=== PATIENT | male | born 1930 | race Caucasian/White ===

== ENCOUNTER 2016-10-29 20:14 | Inpatient (IN) | payer MEDICARE ==
[2016-10-29] MEDS ORDERED: DILTIAZEM 5 MG/ML 5 ML VIAL IVP STA ×2 (20:25→21:58)
--- NOTE | 2016-10-29 20:28 | ED ---
General Adult HPI - General Chief complaint: Shortness of Breath Stated complaint: NEYDA Time Seen by Provider: 10/29/16 20:17 Source: EMS, RN notes reviewed, old records reviewed Mode of arrival: EMS Limitations: no limitations - History of Present Illness Initial comments: This is a 85-year-old male the ER for reevaluation severe shortness of breath or patient was just discharged from [facility] to x-ray care facility. At that time patient became severely hypotensive severely tachycardic and EMS was called. Patient was be again also hypoxic. Patient self denies chest pain with does admit to significant stress of breath. EMS history is obtained from, did note patient to be in SVT and gave adenosine. No help - Related Data Home Medications Medication Instructions Recorded Confirmed Aspirin [Adult Low Dose Aspirin EC] 81 mg PO DAILY 10/29/16 10/29/16 Atorvastatin Calcium [Lipitor] 80 mg PO DAILY 10/29/16 10/29/16 Budesonide/Formoterol Fumarate 2 puff INHALATION RT-BID 10/29/16 10/29/16 [Symbicort 160-4.5 Mcg Inhaler] Cefuroxime Axetil [Ceftin] 500 mg PO BID 10/29/16 10/29/16 Famotidine [Pepcid] 20 mg PO BID 10/29/16 10/29/16 Ipratropium-Albuterol Nebulize 3 ml INHALATION RT-QID 10/29/16 10/29/16 [Duoneb 0.5 mg-3 mg/3 ml Soln] Lisinopril [Zestril] 20 mg PO DAILY 10/29/16 10/29/16 Metoprolol Tartrate [Lopressor] 25 mg PO BID 10/29/16 10/29/16 Multivitamins, Thera [Multivitamin 1 tab PO DAILY 10/29/16 10/29/16 (formulary)] Nitroglycerin Sl Tabs [Nitrostat] 0.4 mg SUBLINGUAL Q5M PRN 10/29/16 10/29/16 predniSONE See Taper PO DAILY 10/29/16 10/29/16 Allergies Allergy/AdvReac Type Severity Reaction Status Date / Time No Known Allergies Allergy Verified 10/29/16 21:02 Review of Systems ROS Statement: Those systems with pertinent positive or pertinent negative responses have been documented in the HPI. ROS Other: All systems not noted in ROS Statement are negative. Past Medical History Past Medical History: Hyperlipidemia, Hypertension Additional Past Medical History / Comment(s): COPD, [place] History of Any Multi-Drug Resistant Organisms: None Reported Past Psychological History: No Psychological Hx Reported Past Alcohol Use History: None Reported Past Drug Use History: None Reported General Exam Limitations: no limitations General appearance: anxious, in distress Head exam: Present: atraumatic, normocephalic, normal inspection Eye exam: Present: normal appearance, PERRL, EOMI. Absent: scleral icterus, conjunctival injection, periorbital swelling ENT exam: Present: normal exam, mucous membranes moist Neck exam: Present: normal inspection. Absent: tenderness, meningismus, lymphadenopathy Respiratory exam: Present: normal lung sounds bilaterally. Absent: respiratory distress, wheezes, rales, rhonchi, stridor Cardiovascular Exam: Present: regular rate, normal rhythm, normal heart sounds. Absent: systolic murmur, diastolic murmur, rubs, gallop, clicks GI/Abdominal exam: Present: soft, normal bowel sounds. Absent: distended, tenderness, guarding, rebound, rigid Extremities exam: Present: normal inspection, full ROM, normal capillary refill. Absent: tenderness, pedal edema, joint swelling, calf tenderness Back exam: Present: normal inspection Neurological exam: Present: alert, oriented X3, CN II-XII intact Psychiatric exam: Present: normal affect, normal mood Skin exam: Present: warm, dry, intact, normal color. Absent: rash Course Vital Signs 10/29/16 10/29/16 10/29/16 20:15 20:30 21:33 Temperature 96.7 F L Pulse Rate 164 H Pulse Rate [ 164 H Transformation Analyst ] Respiratory 22 28 H Rate Blood Pressure 155/77 130/58 O2 Sat by Pulse 100 94 L Oximetry - Reevaluation(s) Reevaluation #1: 10/29/16 21:44 patient hsa much improvement with heart rate control and btreathing treatments EKG Findings - EKG Comments: EKG Findings:: EKG shows wide complex tachycardia rate 164, QRS 120, QTC 5:15. EKG shows a flutter rate 96, QRS 116, QTC 449 Medical Decision Making - Medical Decision Making A serum L year for evaluation of shortness of breath cough congestion chest pain. Patient found to be in new-onset A. fib with RVR, will admit for cardiac evaluation rate control, patient also had elevated troponin. We'll admit for cardiology evaluation - Lab Data Result diagrams: 10/29/16 20:32 10/29/16 20:32 Lab Results 10/29/16 10/29/16 10/29/16 Range/Units 20:32 20:32 20:32 WBC 17.5 H (3.8-10.6) k/uL RBC 3.25 L (4.30-5.90) m/uL Hgb 10.9 L (13.0-17.5) gm/dL Hct 33.7 L (39.0-53.0) % MCV 103.6 H (80.0-100.0) fL MCH 33.5 (25.0-35.0) pg MCHC 32.4 (31.0-37.0) g/dL RDW 14.5 (11.5-15.5) % Plt Count 290 (150-450) k/uL Neutrophils % 84 % Lymphocytes % 6 % Monocytes % 7 % Eosinophils % 0 % Basophils % 0 % Neutrophils # 14.7 H (1.3-7.7) k/uL Lymphocytes # 1.1 (1.0-4.8) k/uL Monocytes # 1.2 H (0-1.0) k/uL Eosinophils # 0.1 (0-0.7) k/uL Basophils # 0.1 (0-0.2) k/uL Macrocytosis Slight PT (9.0-12.0) sec INR (<1.1) APTT (22.0-30.0) sec Sodium 130 L (137-145) mmol/L Potassium 5.1 (3.5-5.1) mmol/L Chloride 78 L* (98-107) mmol/L Carbon Dioxide 46 H* (22-30) mmol/L Anion Gap 6 mmol/L BUN 61 H (9-20) mg/dL Creatinine 1.00 (0.66-1.25) mg/dL Est GFR (MDRD) Af Amer >60 (>60 ml/min/1.73 sqM) Est GFR (MDRD) Non-Af >60 (>60 ml/min/1.73 sqM) Glucose 209 H (74-99) mg/dL Calcium 8.6 (8.4-10.2) mg/dL Phosphorus 2.9 (2.5-4.5) mg/dL Magnesium 2.6 H (1.6-2.3) mg/dL Total Bilirubin 0.7 (0.2-1.3) mg/dL AST 36 (17-59) U/L ALT 40 (21-72) U/L Alkaline Phosphatase 40 (38-126) U/L Total Creatine Kinase 115 (55-170) U/L CK-MB (CK-2) 3.4 H* (0.0-2.4) ng/mL CK-MB (CK-2) Rel Index 3.0 Troponin I 0.129 H* (0.000-0.034) ng/mL Total Protein 5.8 L (6.3-8.2) g/dL Albumin 3.6 (3.5-5.0) g/dL 10/29/16 Range/Units 20:32 WBC (3.8-10.6) k/uL RBC (4.30-5.90) m/uL Hgb (13.0-17.5) gm/dL Hct (39.0-53.0) % MCV (80.0-100.0) fL MCH (25.0-35.0) pg MCHC (31.0-37.0) g/dL RDW (11.5-15.5) % Plt Count (150-450) k/uL Neutrophils % % Lymphocytes % % Monocytes % % Eosinophils % % Basophils % % Neutrophils # (1.3-7.7) k/uL Lymphocytes # (1.0-4.8) k/uL Monocytes # (0-1.0) k/uL Eosinophils # (0-0.7) k/uL Basophils # (0-0.2) k/uL Macrocytosis PT 10.2 (9.0-12.0) sec INR 1.0 (<1.1) APTT 20.6 L (22.0-30.0) sec Sodium (137-145) mmol/L Potassium (3.5-5.1) mmol/L Chloride (98-107) mmol/L Carbon Dioxide (22-30) mmol/L Anion Gap mmol/L BUN (9-20) mg/dL Creatinine (0.66-1.25) mg/dL Est GFR (MDRD) Af Amer (>60 ml/min/1.73 sqM) Est GFR (MDRD) Non-Af (>60 ml/min/1.73 sqM) Glucose (74-99) mg/dL Calcium (8.4-10.2) mg/dL Phosphorus (2.5-4.5) mg/dL Magnesium (1.6-2.3) mg/dL Total Bilirubin (0.2-1.3) mg/dL AST (17-59) U/L ALT (21-72) U/L Alkaline Phosphatase (38-126) U/L Total Creatine Kinase (55-170) U/L CK-MB (CK-2) (0.0-2.4) ng/mL CK-MB (CK-2) Rel Index Troponin I (0.000-0.034) ng/mL Total Protein (6.3-8.2) g/dL Albumin (3.5-5.0) g/dL - Radiology Data Radiology results: report reviewed, image reviewed Critical Care Time Critical Care Time: Yes Total Critical Care Time: 31 Disposition Clinical Impression: Acute exacerbation of chronic obstructive airways disease, Chest pain, NSTEMI ( non-ST elevated myocardial infarction), Atrial fibrillation with RVR Disposition: ADMITTED IP TO THIS HOSP Condition: Serious Referrals: Mariajose Messer MD [Primary Care Provider] - 1-2 days
[2016-10-29 20:56] LABS: Basophils # (A) 0.1 k/uL (0-0.2); Basophils % (A) 0 %; CH 34.2; CHCM 33.2; Eosinophils # (A) 0.1 k/uL (0-0.7); Eosinophils % (A) 0 %; HCT 33.7 % (39.0-53.0); HDW 2.87; HGB 10.9 gm/dL (13.0-17.5); Luc # (Auto) 0.42; Luc % (Auto) 2; Lymphocytes # (A) 1.1 k/uL (1.0-4.8); Lymphocytes % (A) 6 %; MCH 33.5 pg (25.0-35.0); MCHC 32.4 g/dL (31.0-37.0); MCV 103.6 fL (80.0-100.0); Macrocytosis Slight; Mean Platelet Volume 8.3; Monocytes # (A) 1.2 k/uL (0-1.0); Monocytes % (A) 7 %; Neutrophils # (A) 14.7 k/uL (1.3-7.7); Neutrophils % (A) 84 %; RBC 3.25 m/uL (4.30-5.90); RDW 14.5 % (11.5-15.5); WBC 17.5 k/uL (3.8-10.6); WBC (Perox) 18.33
[2016-10-29] MEDS ORDERED: LEVALBUTEROL NEB 1.25 MG/3 ML AMP INHALATION STA (20:59)
[2016-10-29] MEDS ORDERED: IPRATROPIUM 0.5 MG/2.5 ML NEBU INHALATION STA (20:59)
[2016-10-29 21:05] LABS: Prothrombin Time 10.2 sec (9.0-12.0)
[2016-10-29 21:15] LABS: ALT 40 U/L (21-72); AST 36 U/L (17-59); Alkaline Phosphatase 40 U/L (38-126); Blood Urea Nitrogen 61 mg/dL (9-20); Calcium 8.6 mg/dL (8.4-10.2); Glucose 209 mg/dL (74-99); Magnesium 2.6 mg/dL (1.6-2.3); Non-African American GFR(MDRD) >60 (>60 ml/min/1.73 sqM); Phosphorous 2.9 mg/dL (2.5-4.5); Potassium 5.1 mmol/L (3.5-5.1); Sodium 130 mmol/L (137-145); Total Bilirubin 0.7 mg/dL (0.2-1.3); Total Protein 5.8 g/dL (6.3-8.2)
[2016-10-29 21:20] LABS: Anion Gap 6 mmol/L
[2016-10-29 21:22] LABS: Carbon Dioxide 46 mmol/L (22-30); Chloride 78 mmol/L (98-107)
--- NOTE | 2016-10-29 21:22 | XR ---
EXAMINATION TYPE: XR chest 1V portable DATE OF EXAM: 10/29/2016 9:13 PM HISTORY: Shortness of breath. COMPARISON: None. TECHNIQUE: Single view of the chest is submitted. FINDINGS: Demonstrated are scattered senescent parenchymal change. There is patchy density right lung base which may reflect infiltrate and/or atelectasis. Mild left ba silar pleural thickening. The heart is stable. Hilar and mediastinal structures are within normal limits. Degenerative changes are seen of the dorsal spine. IMPRESSION: 1. There is patchy density right lung base which may reflect infiltrate and/or atelectasis. Mild lef t basilar pleural thickening.
[2016-10-29 21:27] LABS: Partial Thromboplastin Time 20.6 sec (22.0-30.0)
[2016-10-29 21:31] LABS: Troponin I 0.129 ng/mL (0.000-0.034)
[2016-10-29 21:32] LABS: Creatine Kinase MB 3.4 ng/mL (0.0-2.4)
[2016-10-29] MEDS ORDERED: ASPIRIN 81 MG CHEW PO STA (21:37)
[2016-10-29] MEDS ORDERED: HEPARIN SODIUM,PORCINE 5,000 UNIT/ML 1 ML VIAL IV PRN (21:37)
[2016-10-29] MEDS ORDERED: NITROGLYCERIN SL TABS 0.4 MG TAB SUBLINGUAL PRN (21:37)
[2016-10-29] MEDS ORDERED: HEPARIN SODIUM,PORCINE 5,000 UNIT/ML 1 ML VIAL IV ONE (21:37)
[2016-10-29] MEDS ORDERED: SODIUM CHLORIDE 0.9% 1,000 ML IV SCH (21:45)
[2016-10-29] MEDS ORDERED: DILTIAZEM 125 MG in SODIUM CHLORIDE 0.9% 100 ML IV SCH (22:00)
[2016-10-29] MEDS: HEPARIN SODIUM,PORCINE/D5W PMX 25,000 UNIT in DEXTROSE/WATER 1 500ML.BAG IV SCH (22:19)
[2016-10-29 23:22] VITALS: BMI 26.2
[2016-10-30 01:56] LABS: Appearance,Urine Clear (Clear); Bilirubin,Urine Negative (Negative); Glucose,Urine (UA) 4+ (Negative); Ketones,Urine Negative (Negative); Leukocyte Esterase,Urine Trace (Negative); Mucus,Urine Rare /hpf; Nitrite,Urine Negative (Negative); Particle Count 4464; Protein,Urine 1+ (Negative); RBC,Urine 6 /hpf (0-5); Specific Gravity,Urine 1.022 (1.001-1.035); Squamous Epithelial Cell,Urine 1 /hpf (0-4); UA Billing (MACRO vs. MICRO) MICRO; Urobilinogen,Urine <2.0 mg/dL (<2.0); WBC,Urine 4 /hpf (0-5)
[2016-10-30] MEDS: IPRATROPIUM-ALBUTEROL 3 ML NEB INHALATION SCH ×3 (03:12→10:48)
[2016-10-30 04:05] LABS: Mean Platelet Volume 8.5
[2016-10-30 04:58] LABS: Cholesterol 170 mg/dL (<200); HDL Cholesterol 75 mg/dL (40-60); Triglycerides 135 mg/dL (<150)
[2016-10-30 05:00] LABS: Troponin I 0.153 ng/mL (0.000-0.034)
[2016-10-30] MEDS ORDERED: ASPIRIN 325 MG TAB PO SCH (09:00)
[2016-10-30] MEDS ORDERED: METOPROLOL TARTRATE 25 MG TAB PO SCH ×2 (09:00→09:45)
[2016-10-30] MEDS ORDERED: HYDROCHLOROTHIAZIDE 12.5 MG CAP PO SCH (09:00)
[2016-10-30] MEDS ORDERED: NITROGLYCERIN SL TABS 0.4 MG TAB SUBLINGUAL PRN (09:36)
[2016-10-30] MEDS ORDERED: IPRATROPIUM 0.5 MG/2.5 ML NEBU INHALATION PRN (09:39)
[2016-10-30] MEDS ORDERED: methylPREDNISolone SOD SUCCI 125 MG/2 ML VIAL IV STA (09:40)
[2016-10-30] MEDS ORDERED: LISINOPRIL 20 MG TAB PO SCH (09:45)
[2016-10-30 09:59] LABS: CH 33.6; HCT 30.3 % (39.0-53.0); HDW 2.88; HGB 9.9 gm/dL (13.0-17.5); MCH 33.5 pg (25.0-35.0); MCHC 32.8 g/dL (31.0-37.0); MCV 102.3 fL (80.0-100.0); Macrocytosis Slight; Mean Platelet Volume 8.1; RBC 2.96 m/uL (4.30-5.90); RDW 14.4 % (11.5-15.5); WBC 18.7 k/uL (3.8-10.6)
[2016-10-30 10:07] LABS: ALT 40 U/L (21-72); AST 41 U/L (17-59); Alkaline Phosphatase 35 U/L (38-126); Blood Urea Nitrogen 66 mg/dL (9-20); Glucose 180 mg/dL (74-99); Non-African American GFR(MDRD) >60 (>60 ml/min/1.73 sqM); Potassium 5.1 mmol/L (3.5-5.1); Sodium 129 mmol/L (137-145); Total Bilirubin 0.9 mg/dL (0.2-1.3); Total Protein 5.7 g/dL (6.3-8.2)
[2016-10-30 10:13] LABS: Anion Gap 7 mmol/L
[2016-10-30 10:19] LABS: Carbon Dioxide 43 mmol/L (22-30); Chloride 79 mmol/L (98-107)
[2016-10-30 10:20] LABS: Creatine Kinase MB 3.8 ng/mL (0.0-2.4); Troponin I 0.159 ng/mL (0.000-0.034)
--- NOTE | 2016-10-30 10:42 | P.CRDCN ---
History of Present Illness Consult date: 10/30/16 Requesting physician: Mariajose Messer Consult reason: shortness of breath Chief complaint: Shortness of breath History of present illness: This is an 85-year-old gentleman with known history of advanced COPD, nicotine dependence, hypertension, nicotine dependence, who was recently at [facility] with exacerbation of COPD with associated pneumonia. He is admitted here on this occasion with symptoms of progressively worsening shortness of breath with evidence of hypotension and tachycardia. An echocardiogram with Doppler study was performed on October 24 [facility] which revealed an ejection fraction of 40-45%. Severe aortic stenosis. EKG on arrival here showed atrial flutter with rapid ventricular response. Chest x- ray on admission revealed a patchy density in the right lung base which may reflect infiltrate and/or atelectasis. White blood cell count on admission 17.5 , 18.7 this morning. Hemoglobin 9.9, platelet count 246. Sodium 129, potassium 5.1, chloride 79, CO2 43, BUN 66, creatinine 0.8. Troponins 0.12, 0.15, 0.15. Magl level 2.6. It is difficult to get a detailed history from the patient because of his history of dementia. Patient is currently on aspirin , Lipitor, Cardizem drip at 5 mg per hour, heparin drip, inhalers and breathing treatments. Levaquin, lisinopril, metoprolol tartrate, IV fluids at 75 an hour , and IV steroids. Current oxygen saturation 92% on 6 L high flow. It appears that the patient is in and out of atrial fibrillation. He is noted to have a significant amount of ecchymosis on his bilateral upper extremities. Past Medical History Past Medical History: Hyperlipidemia, Hypertension Additional Past Medical History / Comment(s): COPD, [place] History of Any Multi-Drug Resistant Organisms: None Reported Past Surgical History: No Surgical Hx Reported Past Psychological History: No Psychological Hx Reported Smoking Status: Former smoker Past Alcohol Use History: None Reported Past Drug Use History: None Reported - Past Family History Father Family Medical History: Unable to Obtain Mother Family Medical History: Unable to Obtain Medications and Allergies Home Medications Medication Instructions Recorded Confirmed Type Aspirin [Adult Low Dose Aspirin EC] 81 mg PO DAILY 10/29/16 10/29/16 History Atorvastatin Calcium [Lipitor] 80 mg PO DAILY 10/29/16 10/29/16 History Budesonide/Formoterol Fumarate 2 puff INHALATION RT-BID 10/29/16 10/29/16 History [Symbicort 160-4.5 Mcg Inhaler] Cefuroxime Axetil [Ceftin] 500 mg PO BID 10/29/16 10/29/16 History Famotidine [Pepcid] 20 mg PO BID 10/29/16 10/29/16 History Folic Acid 0.4 mg PO DAILY 10/29/16 10/29/16 History Hydrochlorothiazide [Hydrodiuril] 12.5 mg PO DAILY 10/29/16 10/29/16 History Ipratropium-Albuterol Nebulize 3 ml INHALATION RT-QID 10/29/16 10/29/16 History [Duoneb 0.5 mg-3 mg/3 ml Soln] Lisinopril [Zestril] 20 mg PO DAILY 10/29/16 10/29/16 History Metoprolol Tartrate [Lopressor] 25 mg PO BID 10/29/16 10/29/16 History Multivitamins, Thera [Multivitamin 1 tab PO DAILY 10/29/16 10/29/16 History (formulary)] Nitroglycerin Sl Tabs [Nitrostat] 0.4 mg SUBLINGUAL Q5M PRN 10/29/16 10/29/16 History predniSONE See Taper PO DAILY 10/29/16 10/29/16 History Allergies Allergy/AdvReac Type Severity Reaction Status Date / Time No Known Allergies Allergy Verified 10/29/16 21:02 Physical Exam Vitals: Vital Signs Temp Pulse Pulse Resp BP BP Pulse Ox 10/30/16 09:34 92 L 10/30/16 08:13 97.4 F L 80 19 149/63 94 L 10/30/16 04:00 97.3 F L 78 17 138/67 92 L 10/30/16 03:19 96 10/30/16 03:12 88 10/30/16 00:00 97.9 F 80 18 110/58 94 L 10/29/16 22:31 92 24 97/52 98 10/29/16 22:12 90 24 100/56 99 10/29/16 22:05 165 H 26 H 129/57 10/29/16 22:04 165 H 10/29/16 21:50 97.4 F L 60 15 109/61 95 04/12/17 21:39 126 H Intake and Output 10/29/16 10/30/16 10/30/16 22:59 06:59 14:59 Intake Total 180 123.125 Output Total 200 Balance 180 -76.875 Intake: Intake, IV Titration 180 123.125 Amount Diltiazem 125 mg In 20 Sodium Chloride 0.9% 100 ml @ 5 MG/HR 5 mls/hr IV .Q24H [facility] Rx#:[id number] Heparin Sodium,Porcine/ 80 123.125 D5w Pmx 25,000 unit In Dextrose/Water 1 500ml. bag @ 12 UNITS/KG/HR 19.7 mls/hr IV .Q24H [facility] Rx#: [id number] Sodium Chloride 0.9% 1, 80 000 ml @ 20 mls/hr IV . Q24H [facility] Rx#:[id number] Output: Urine 200 Other: Voiding Method Urinal Urinal # Voids 1 0 # Bowel Movements 0 Weight 80.5 kg 70.5 kg PHYSICAL EXAMINATION: HEENT: Head is atraumatic, normocephalic. Pupils equal, round. Neck is supple. There is elevated jugular venous pressure. HEART EXAMINATION: Heart S1 and S2 irregularly irregular systolic ejection murmur is heard. CHEST EXAMINATION: His reveal decreased air exchange throughout with scattered wheezing and rhonchi throughout. ABDOMEN: Soft, nontender. Bowel sounds are heard. No organomegaly noted. EXTREMITIES: 2+ peripheral pulses with trace evidence of peripheral edema and no calf tenderness noted. Evidence of significant ecchymosis on upper extremities. NEUROLOGIC patient is awake, alert, confused. . Results 10/30/16 09:15 10/30/16 09:15 Cardiac Enzymes 10/30/16 10/30/16 Range/Units 03:37 09:15 AST 41 (17-59) U/L CK-MB (CK-2) 4.0 H* (0.0-2.4) ng/mL Troponin I 0.153 H* (0.000-0.034) ng/mL Coagulation 10/30/16 10/30/16 Range/Units 03:37 09:15 APTT 79.9 H 46.8 H (22.0-30.0) sec Lipids 10/30/16 Range/Units 03:37 Triglycerides 135 (<150) mg/dL Cholesterol 170 (<200) mg/dL HDL Cholesterol 75 H (40-60) mg/dL CBC 10/30/16 10/30/16 Range/Units 03:37 09:15 WBC 18.7 H (3.8-10.6) k/uL RBC 2.96 L (4.30-5.90) m/uL Hgb 9.9 L (13.0-17.5) gm/dL Hct 30.3 L (39.0-53.0) % Plt Count 243 246 (150-450) k/uL Comprehensive Metabolic Panel 10/30/16 Range/Units 09:15 Sodium 129 L (137-145) mmol/L Potassium 5.1 (3.5-5.1) mmol/L Chloride 79 L* (98-107) mmol/L Carbon Dioxide 43 H* (22-30) mmol/L BUN 66 H (9-20) mg/dL Creatinine 0.88 (0.66-1.25) mg/dL Glucose 180 H (74-99) mg/dL AST 41 (17-59) U/L ALT 40 (21-72) U/L Alkaline Phosphatase 35 L (38-126) U/L Total Protein 5.7 L (6.3-8.2) g/dL Albumin 3.4 L (3.5-5.0) g/dL Current Medications Generic Name Dose Route Start Last Admin Trade Name Freq PRN Reason Stop Dose Admin Atorvastatin Calcium 80 mg 10/30/16 21:00 Lipitor PO HS [facility] Budesonide/Formoterol Fumarate 2 puff 10/30/16 20:00 Symbicort 160-4.5 Mcg Inhaler INHALATION RT-BID [facility] Famotidine 20 mg 10/30/16 21:00 Pepcid PO BID [facility] Folic Acid 0.5 mg 10/30/16 12:00 Folic Acid PO DAILY@1200 [facility] Heparin Sodium (Porcine) 0 unit 10/29/16 21:37 Heparin IV Q6HR PRN Low PTT Protocol Hydrochlorothiazide 12.5 mg 10/30/16 09:00 Hydrodiuril PO DAILY [facility] Heparin Sodium/Dextrose 25,000 500 mls @ 19.7 mls/hr 10/29/16 21:45 10/30/16 04:34 unit/ IV Solution IV 10 units/kg/hr .Q24H [facility] 16.42 mls/hr Protocol Titration 12 UNITS/KG/HR Diltiazem HCl 125 mg/ Sodium 125 mls @ 5 mls/hr 10/29/16 22:00 10/29/16 22:13 Chloride IV 5 mg/hr .Q24H [facility] 5 mls/hr 5 MG/HR Administration Levofloxacin 750 mg/ IV 150 mls @ 100 mls/hr 10/30/16 10:30 Solution IVPB Q24HR [facility] Sodium Chloride 1,000 mls @ 75 mls/hr 10/30/16 09:45 Saline 0.9% IV .[id number] [facility] Insulin Human Lispro 0 unit 10/30/16 12:30 Humalog SQ ACHS [facility] Protocol Ipratropium [place] 0.5 mg 10/30/16 12:00 Atrovent Nebulized INHALATION RT-QID [facility] Ipratropium [place] 0.5 mg 10/30/16 09:39 Atrovent Nebulized INHALATION RT-Q2H PRN Shortness Of Breath Or Wheezing Levalbuterol HCl 1.25 mg 10/30/16 12:00 Xopenex Nebulized (Conc) INHALATION RT-QID [facility] Lisinopril 20 mg 10/30/16 09:45 Zestril PO DAILY [facility] Methylprednisolone Sodium Succinate 60 mg 10/30/16 18:00 Solu-Medrol IV Q6HR [facility] Metoprolol Tartrate 25 mg 10/30/16 09:00 10/30/16 09:03 Lopressor PO 25 mg BID [facility] Administration Morphine Sulfate 4 mg 10/29/16 21:37 Morphine Sulfate (Inj) IV Q4HR PRN Chest Pain Multivitamins 1 each 10/31/16 12:00 Theragran PO DAILY@1200 [facility] Nitroglycerin 0.4 mg 10/30/16 09:36 Nitrostat SUBLINGUAL Q5M PRN Chest Pain Intake and Output 10/29/16 10/30/16 10/30/16 22:59 06:59 14:59 Intake Total 180 123.125 Output Total 200 Balance 180 -76.875 Intake: Intake, IV Titration 180 123.125 Amount Diltiazem 125 mg In 20 Sodium Chloride 0.9% 100 ml @ 5 MG/HR 5 mls/hr IV .Q24H [facility] Rx#:[id number] Heparin Sodium,Porcine/ 80 123.125 D5w Pmx 25,000 unit In Dextrose/Water 1 500ml. bag @ 12 UNITS/KG/HR 19.7 mls/hr IV .Q24H [facility] Rx#: [id number] Sodium Chloride 0.9% 1, 80 000 ml @ 20 mls/hr IV . Q24H [facility] Rx#:[id number] Output: Urine 200 Other: Voiding Method Urinal Urinal # Voids 1 0 # Bowel Movements 0 Weight 80.5 kg 70.5 kg 10/30/16 09:15 10/30/16 09:15 EKG Interpretations (text) EKG shows atrial fibrillation with rapid ventricular response. Assessment and Plan Plan: Assessment and plan #1 atrial fibrillation with rapid ventricular response, paroxysmal in nature. Patient currently on IV heparin. #2 exacerbation of COPD with presence of pneumonia. #3 hypertension #4 advanced COPD # 5 dementia #6 aortic stenosis, recent echocardiogram with Doppler study performed last week at [facility] showed an ejection fraction of 40-45% with severe aortic stenosis. Plan We will increase beta hollie to 50 mg one tablet by mouth twice a day. Discontinue IV Cardizem. We need to evaluate further whether the patient is a candidate for long-term anticoagulation, in the meantime we will check to see if the patient has coverage for Eliquis. Continue IV heparin at this time. We do not need to repeat an echocardiogram with Doppler study as he just had one earlier this week at [facility]. We will check free T4 and TSH. Further recommendations to follow. DNP note has been reviewed, I agree with a documented findings and plan of care. Patient was seen and examined.
[2016-10-30 10:48] LABS: Calcium 8.7 mg/dL (8.4-10.2)
[2016-10-30] MEDS: LEVALBUTEROL NEB (CONC) 1.25 MG/0.5 ML AMP INHALATION SCH ×3 (11:12→20:32)
[2016-10-30] MEDS: IPRATROPIUM 0.5 MG/2.5 ML NEBU INHALATION SCH ×3 (11:12→20:32)
[2016-10-30] MEDS: LEVOFLOXACIN 750MG-D5W PMX 750 MG in DEXTROSE/WATER 1 150ML.BAG IVPB SCH (11:35)
[2016-10-30] MEDS: SODIUM CHLORIDE 0.9% 1,000 ML IV SCH (11:47)
[2016-10-30] MEDS: FOLIC ACID 1 MG TAB PO SCH (11:57)
--- NOTE | 2016-10-30 11:57 | ECHOF ---
Referral Reason:afib MEASUREMENTS -------- HEIGHT: 175.3 cm WEIGHT: 70.3 kg BP: 149/63 RVIDd: 3.2 cm (< 3.3) IVSd: 1.2 cm (0.6 - 1.1) LVIDd: 4.5 cm (3.9 - 5.3) LVPWd: 1.2 cm (0.6 - 1.1) IVSs: 1.4 cm LVIDs: 3.5 cm LVPWs: 1.3 cm LA Diam: 3.0 cm (2.7 - 3.8) LAESV Index (A-L): 20.13 ml/m Ao Diam: 3.4 cm (2.0 - 3.7) AV Cusp: 0.9 cm (1.5 - 2.6) MV EXCURSION: 14.967 mm (> 18.000) MV EF SLOPE: 55 mm/s (70 - 150) EPSS: 0.8 cm MV E Jax: 0.70 m/s MV DecT: 188 ms MV A Jax: 0.83 m/s MV E/A Ratio: 0.84 AV maxP.28 mmHg AV meanP.62 mmHg RAP: 5.00 mmHg RVSP: 37.00 mmHg FINDINGS -------- This was a technically adequate study. The left ventricular size is normal. There is borderline concentric left ventricular hypertrophy. Overall left ventricular systolic function is moderately impaired with, an EF between 35 - 40 %. The right ventricle is normal in size and function. Normal LA size by volume 22+/-6 ml/m2. The right atrium is normal in size. Aortic valve is trileaflet and is severely thickened. There is mild aortic regurgitation. There is moderate aortic stenosis present. Peak/mean gradient across the Aortic Valve is 40.28mmHg / 21.62mmHg. The mitral valve leaflets are mildly thickened. Mild mitral annular calcification present. Mild mitral regurgitation is present. Mild tricuspid regurgitation present. There is mild pulmonary hypertension. The right ventricular systolic pressure, as measured by Doppler, is 37.00mmHg. The pulmonic valve was not well visualized. The aortic root size is normal. Normal inferior vena cava with normal inspiratory collapse consistent with estimated right atrial pressure of 5 mmHg. There is no pericardial effusion. CONCLUSIONS -------- 1. This was a technically adequate study. 2. There is moderate aortic stenosis present. 3. Peak/mean gradient across the Aortic Valve is 40.28mmHg / 21.62mmHg. 4. The mitral valve leaflets are mildly thickened. 5. Mild mitral annular calcification present. 6. Mild mitral regurgitation is present. 7. Mild tricuspid regurgitation present. 8. There is mild pulmonary hypertension. 9. The right ventricular systolic pressure, as measured by Doppler, is 37.00mmHg. 10. The pulmonic valve was not well visualized. 11. The aortic root size is normal. 12. The left ventricular size is normal. 13. Normal inferior vena cava with normal inspiratory collapse consistent with estimated right atrial pressure of 5 mmHg. 14. There is no pericardial effusion. 15. There is borderline concentric left ventricular hypertrophy. 16. Overall left ventricular systolic function is moderately impaired with, an EF between 35 - 40 %. 17. The right ventricle is normal in size and function. 18. Normal LA size by volume 22+/-6 ml/m2. 19. The right atrium is normal in size. 20. Aortic valve is trileaflet and is severely thickened. 21. There is mild aortic regurgitation. GREY PERCHER: Mariana Nunes RDCS
[2016-10-30 12:09] LABS: Glucose,Whole Blood 236 mg/dL (75-99)
--- NOTE | 2016-10-30 12:18 | P.CNPUL ---
History of Present Illness Consult date: 10/30/16 Requesting physician: Mariajose Messer Reason for consult: dyspnea Chief complaint: Shortness of breath History of present illness: This is a pleasant 85-year-old gentleman who his a past medical history of hyperlipidemia, hypertension, COPD. He was recently at [facility]. From there he was transferred to [facility] on the [place] and shortly after that he was found to be hypotensive and tachycardic and EMS was called. He was also hypoxic and noted to be in SVT. He was given a Adenocard in the emergency room. from there he was found to be in atrial fibrillation with a rapid ventricular response. His echocardiogram revealed impaired left ventricular systolic function with estimated ejection fraction 35-40%. There is a severely thickened aortic valve as well. His chest x-ray revealed a patchy density in the right lung base with mild left basilar pleural thickening and we are consulted for the same. He is seen today in consultation on the selective care unit. He is currently sitting up in the chair at the bedside. He is dyspneic with minimal exertion. He denies any significant shortness of breath, cough or congestion. He is currently maintaining O2 saturations in the low 90s on 4 L/m per nasal cannula. He's been afebrile. Leukocytosis currently 18.7. Hyponatremia at 129, hypochloremia at 79 and a CO2 of 43. Troponins mildly elevated. He is on a heparin drip. Review of Systems ROS unobtainable: due to mental status Past Medical History Past Medical History: Hyperlipidemia, Hypertension Additional Past Medical History / Comment(s): COPD, [place] History of Any Multi-Drug Resistant Organisms: None Reported Past Surgical History: No Surgical Hx Reported Past Psychological History: No Psychological Hx Reported Smoking Status: Former smoker Past Alcohol Use History: None Reported Past Drug Use History: None Reported - Past Family History Father Family Medical History: Unable to Obtain Mother Family Medical History: Unable to Obtain Medications and Allergies Home Medications Medication Instructions Recorded Confirmed Type Aspirin [Adult Low Dose Aspirin EC] 81 mg PO DAILY 10/29/16 10/29/16 History Atorvastatin Calcium [Lipitor] 80 mg PO DAILY 10/29/16 10/29/16 History Budesonide/Formoterol Fumarate 2 puff INHALATION RT-BID 10/29/16 10/29/16 History [Symbicort 160-4.5 Mcg Inhaler] Cefuroxime Axetil [Ceftin] 500 mg PO BID 10/29/16 10/29/16 History Famotidine [Pepcid] 20 mg PO BID 10/29/16 10/29/16 History Folic Acid 0.4 mg PO DAILY 10/29/16 10/29/16 History Hydrochlorothiazide [Hydrodiuril] 12.5 mg PO DAILY 10/29/16 10/29/16 History Ipratropium-Albuterol Nebulize 3 ml INHALATION RT-QID 10/29/16 10/29/16 History [Duoneb 0.5 mg-3 mg/3 ml Soln] Lisinopril [Zestril] 20 mg PO DAILY 10/29/16 10/29/16 History Metoprolol Tartrate [Lopressor] 25 mg PO BID 10/29/16 10/29/16 History Multivitamins, Thera [Multivitamin 1 tab PO DAILY 10/29/16 10/29/16 History (formulary)] Nitroglycerin Sl Tabs [Nitrostat] 0.4 mg SUBLINGUAL Q5M PRN 10/29/16 10/29/16 History predniSONE See Taper PO DAILY 10/29/16 10/29/16 History Allergies Allergy/AdvReac Type Severity Reaction Status Date / Time No Known Allergies Allergy Verified 10/29/16 21:02 Physical Exam Vitals: Vital Signs Temp Pulse Pulse Resp BP BP Pulse Ox 10/30/16 11:12 92 10/30/16 11:10 98.0 F 70 18 113/53 93 L 10/30/16 09:34 92 L 10/30/16 09:00 80 10/30/16 08:13 97.4 F L 80 19 149/63 94 L 10/30/16 04:00 97.3 F L 78 17 138/67 92 L 10/30/16 03:19 96 10/30/16 03:12 88 10/30/16 00:00 97.9 F 80 18 110/58 94 L 10/29/16 22:31 92 24 97/52 98 10/29/16 22:12 90 24 100/56 99 10/29/16 22:05 165 H 26 H 129/57 10/29/16 22:04 165 H 10/29/16 21:50 97.4 F L 60 15 109/61 95 10/29/16 21:39 126 H Intake and Output 10/29/16 10/30/16 10/30/16 22:59 06:59 14:59 Intake Total 180 123.125 Output Total 200 Balance 180 -76.875 Intake: Intake, IV Titration 180 123.125 Amount Diltiazem 125 mg In 20 Sodium Chloride 0.9% 100 ml @ 5 MG/HR 5 mls/hr IV .Q24H [facility] Rx#:[id number] Heparin Sodium,Porcine/ 80 123.125 D5w Pmx 25,000 unit In Dextrose/Water 1 500ml. bag @ 12 UNITS/KG/HR 19.7 mls/hr IV .Q24H [facility] Rx#: [id number] Sodium Chloride 0.9% 1, 80 000 ml @ 20 mls/hr IV . Q24H [facility] Rx#:[id number] Output: Urine 200 Other: Voiding Method Urinal Urinal # Voids 1 0 # Bowel Movements 0 Weight 80.5 kg 70.5 kg GENERAL EXAM: Alert, comfortable in no apparent distress. HEAD: Normocephalic. EYES: Normal reaction of pupils, equal size. NOSE: Clear with pink turbinates. THROAT: No erythema or exudates. NECK: No masses, no JVD. CHEST: No chest wall deformity. LUNGS: Equal air entry with bilateral wheeze, few scattered rhonchi, diminished. CVS: S1 and S2 normal with an audible murmur, irregular rhythm. ABDOMEN: No hepatosplenomegaly, normal bowel sounds, no guarding or rigidity. extremities: There is trace peripheral edema. No clubbing, no cyanosis. Peripheral pulses are intact. Results - Laboratory Findings CBC and BMP: 10/30/16 09:15 10/30/16 09:15 PT/INR, D-dimer PT 10.2 sec (9.0-12.0) 10/29/16 20:32 INR 1.0 (<1.1) 10/29/16 20:32 Abnormal lab findings: Abnormal Labs 10/30/16 10/30/16 10/30/16 01:30 03:37 03:37 WBC RBC Hgb Hct MCV APTT 79.9 H Sodium Chloride Carbon Dioxide BUN Glucose Alkaline Phosphatase CK-MB (CK-2) 4.0 H* Troponin I 0.153 H* Total Protein Albumin HDL Cholesterol TSH Urine Protein 1+ H Urine Glucose (UA) 4+ H Urine Blood Moderate H Ur Leukocyte Esterase Trace H Urine RBC 6 H Hyaline Casts 13 H Urine Mucus Rare H 10/30/16 10/30/16 10/30/16 03:37 09:13 09:15 WBC RBC Hgb Hct MCV APTT Sodium Chloride Carbon Dioxide BUN Glucose Alkaline Phosphatase CK-MB (CK-2) 3.8 H* Troponin I 0.159 H* Total Protein Albumin HDL Cholesterol 75 H TSH 0.199 L Urine Protein Urine Glucose (UA) Urine Blood Ur Leukocyte Esterase Urine RBC Hyaline Casts Urine Mucus 10/30/16 10/30/16 10/30/16 09:15 09:15 09:15 WBC 18.7 H RBC 2.96 L Hgb 9.9 L Hct 30.3 L MCV 102.3 H APTT 46.8 H Sodium 129 L Chloride 79 L* Carbon Dioxide 43 H* BUN 66 H Glucose 180 H Alkaline Phosphatase 35 L CK-MB (CK-2) Troponin I Total Protein 5.7 L Albumin 3.4 L HDL Cholesterol TSH Urine Protein Urine Glucose (UA) Urine Blood Ur Leukocyte Esterase Urine RBC Hyaline Casts Urine Mucus - Diagnostic Findings Chest x-ray: image reviewed Assessment and Plan Plan: Impression: #1 Acute exacerbation of chronic obstructive pulmonary disease complicated by right lower lobe pneumonia. #2 New-onset atrial fibrillation with rapid ventricular response, currently on heparin. #3 Severe aortic stenosis. #4 Cardiomyopathy with impaired left ventricular systolic function. #5 Hypertension. #6 Dementia. Plan: The patient was seen and evaluated by Dr. Cortez. His chest x-ray and labs were reviewed. We will go ahead and treat the patient for his COPD exacerbation with bronchodilators, IV Solu-Medrol, antibiotics. Cardiology is following as well. The plan is for anticoagulation possibly in the form of Eliquis. He'll remain on IV heparin until then. Time with Patient: Greater than 30
[2016-10-30] MEDS: INSULIN LISPRO (humaLOG) 300 UNIT/3 ML VIAL SQ SCH ×3 (12:41→22:06)
[2016-10-30 12:56] LABS: Hemoglobin A1C 5.7 % (4.2-6.1)
--- NOTE | 2016-10-30 17:10 | P.HPIM ---
History of Present Illness H&P Date: 10/30/16 Chief Complaint: Shortness of breath palpitations This is an 85-year-old gentleman with no current known PCP he was recently transferred from [facility] to [facility] for skilled rehabilitation. He was admitted [facility] secondary to worsening hypoxemia secondary to lack of power,. He has severe decreased hearing, underlying advanced COPD on it hypoxemic respiratory failure hypertension neurocognitive deficit from dementia.. He was at [facility] on [facility] when he arrived he was tachypneic, heart rate was in the 190s, extra metoprolol 50 mg was given for total of 75 mg, patient was denying chest pain at that time until a few minutes later, the metoprolol did not work he subsequently had some chest discomfort nitroglycerin was given with instructions to transfer him via EMS to the emergency room. To in the emergency room he had an EKG what Y complex tachycardia heart rate of 164, atrial flutter of 96, QT of 449 troponin is slightly elevated at 0.153 Additional information from [facility] shows an echocardiogram showed ejection fraction 40-45%, severe aortic stenosis, chest x-ray showed patchy density right lung base which may reflect infiltrate or atelectasis,, patient was seen consultation by cardiology and pulmonary medicine. Review of Systems Constitutional: Reports as per HPI, Denies anorexia, Denies chills, Denies chronic headaches, Denies chronic pain, Denies daytime sleepiness, Denies fatigue, Denies fever, Denies lethargy, Denies malaise, Denies night sweats, Denies poor appetite, Denies sweats, Denies weakness, Denies weight gain, Denies weight loss Ears: bilateral: decreased hearing Ears, nose, mouth and throat: Reports as per HPI Cardiovascular: Reports as per HPI, Reports decreased exercise tolerance, Reports dyspnea on exertion, Reports irregular heart beat, Reports palpitations , Reports shortness of breath Respiratory: Reports as per HPI, Reports dyspnea, Reports home oxygen, Denies congestion, Denies cough, Denies cough with sputum, Denies excessive sputum, Denies hemoptysis, Denies pain, Denies pain on inspiration, Denies pleurisy, Denies respiratory infections, Denies sleep apnea, Denies snoring, Denies wheezing Gastrointestinal: Reports as per HPI Genitourinary: Reports as per HPI Musculoskeletal: Reports as per HPI, Reports gait dysfunction, Reports limitation of motion Integumentary: Reports as per HPI Neurological: Reports as per HPI Psychiatric: Reports as per HPI, Denies anhedonia, Denies anxiety, Denies anxiety attacks, Denies change in appetite, Denies change in libido, Denies change in sleep habits, Denies confusion, Denies depression, Denies difficulty concentrating, Denies disorientation, Denies hallucinations, Denies hopelessness , Denies hypersomnia, Denies insomnia, Denies irritability, Denies memory loss, Denies mood swings, Denies paranoia, Denies sadness/tearfulness, Denies sleep disturbances, Denies suicidal ideation Endocrine: Reports as per HPI, Denies cold intolerance, Denies deepening of the voice, Denies excessive sweating, Denies excessive thirst, Denies fatigue, Denies flushing, Denies heat intolerance, Denies high blood sugars, Denies increase in ring/shoe/hat size, Denies low blood sugars, Denies nocturia, Denies palpitations, Denies polydipsia, Denies polyphagia, Denies polyuria, Denies proptosis, Denies recent glucocorticoid use, Denies thyroid mass, Denies weight change Hematologic/Lymphatic: Reports as per HPI Allergic/Immunologic: Reports as per HPI Past Medical History Past Medical History: Hyperlipidemia, Hypertension Additional Past Medical History / Comment(s): COPD, [place] History of Any Multi-Drug Resistant Organisms: None Reported Past Surgical History: No Surgical Hx Reported Past Psychological History: No Psychological Hx Reported Smoking Status: Former smoker Past Alcohol Use History: None Reported Past Drug Use History: None Reported - Past Family History Father Family Medical History: Unable to Obtain Mother Family Medical History: Unable to Obtain Medications and Allergies Home Medications Medication Instructions Recorded Confirmed Type Aspirin [Adult Low Dose Aspirin EC] 81 mg PO DAILY 10/29/16 10/29/16 History Atorvastatin Calcium [Lipitor] 80 mg PO DAILY 10/29/16 10/29/16 History Budesonide/Formoterol Fumarate 2 puff INHALATION RT-BID 10/29/16 10/29/16 History [Symbicort 160-4.5 Mcg Inhaler] Cefuroxime Axetil [Ceftin] 500 mg PO BID 10/29/16 10/29/16 History Famotidine [Pepcid] 20 mg PO BID 10/29/16 10/29/16 History Folic Acid 0.4 mg PO DAILY 10/29/16 10/29/16 History Hydrochlorothiazide [Hydrodiuril] 12.5 mg PO DAILY 10/29/16 10/29/16 History Ipratropium-Albuterol Nebulize 3 ml INHALATION RT-QID 10/29/16 10/29/16 History [Duoneb 0.5 mg-3 mg/3 ml Soln] Lisinopril [Zestril] 20 mg PO DAILY 10/29/16 10/29/16 History Metoprolol Tartrate [Lopressor] 25 mg PO BID 10/29/16 10/29/16 History Multivitamins, Thera [Multivitamin 1 tab PO DAILY 10/29/16 10/29/16 History (formulary)] Nitroglycerin Sl Tabs [Nitrostat] 0.4 mg SUBLINGUAL Q5M PRN 10/29/16 10/29/16 History predniSONE See Taper PO DAILY 10/29/16 10/29/16 History Allergies Allergy/AdvReac Type Severity Reaction Status Date / Time No Known Allergies Allergy Verified 10/29/16 21:02 Physical Exam Vitals: Vital Signs Temp Pulse Pulse Resp BP BP Pulse Ox 10/30/16 15:00 98.4 F 82 20 113/59 95 10/30/16 13:34 92 10/30/16 12:00 70 20 10/30/16 11:12 92 10/30/16 11:10 98.0 F 70 18 113/53 93 L 10/30/16 09:34 92 L 10/30/16 09:00 80 10/30/16 08:13 97.4 F L 80 19 149/63 94 L 10/30/16 04:00 97.3 F L 78 17 138/67 92 L 10/30/16 03:19 96 10/30/16 03:12 88 10/30/16 00:00 97.9 F 80 18 110/58 94 L 10/29/16 22:31 92 24 97/52 98 10/29/16 22:12 90 24 100/56 99 10/29/16 22:05 165 H 26 H 129/57 10/29/16 22:04 165 H 10/29/16 21:50 97.4 F L 60 15 109/61 95 10/29/16 21:39 126 H Intake and Output 04/13/17 04/13/17 04/13/17 06:59 14:59 22:59 Intake Total 123.125 Output Total 200 Balance -76.875 Intake: Intake, IV Titration 123.125 Amount Heparin Sodium,Porcine/ 123.125 D5w Pmx 25,000 unit In Dextrose/Water 1 500ml. bag @ 12 UNITS/KG/HR 19.7 mls/hr IV .Q24H [facility] Rx#: [id number] Output: Urine 200 Other: Voiding Method Urinal Urinal # Voids 1 0 # Bowel Movements 0 Weight 70.5 kg - Constitutional General appearance: average body habitus, cooperative, no disheveled, no mild distress, no morbidly obese, no acute distress, no obese, no severe distress, no thin - EENT Eyes: anicteric sclerae, PERRLA, poor dentition ENT: hard of hearing, NA/AT, normal oropharynx - Neck Neck: normal ROM - Respiratory Respiratory: bilateral: CTA, negative: diminished, dullness, rales - Cardiovascular Rhythm: regular Heart sounds: normal: S1, S2 Abnormal Heart Sounds: no systolic murmur, no diastolic murmur, no rub, no S3 Gallop, no S4 Gallop, no click, no other - Gastrointestinal General gastrointestinal: soft - Integumentary Integumentary: decreased turgor, normal - Musculoskeletal Musculoskeletal: strength equal bilaterally Results CBC & Chem 7: 10/30/16 09:15 10/30/16 09:15 Labs: Abnormal Lab Results - Last 24 Hours (Table) 10/30/16 10/30/16 10/30/16 Range/Units 01:30 03:37 03:37 WBC (3.8-10.6) k/uL RBC (4.30-5.90) m/uL Hgb (13.0-17.5) gm/dL Hct (39.0-53.0) % MCV (80.0-100.0) fL APTT 79.9 H (22.0-30.0) sec Sodium (137-145) mmol/L Chloride (98-107) mmol/L Carbon Dioxide (22-30) mmol/L BUN (9-20) mg/dL Glucose (74-99) mg/dL POC Glucose (mg/dL) (75-99) mg/dL Alkaline Phosphatase (38-126) U/L CK-MB (CK-2) 4.0 H* (0.0-2.4) ng/mL Troponin I 0.153 H* (0.000-0.034) ng/mL Total Protein (6.3-8.2) g/dL Albumin (3.5-5.0) g/dL HDL Cholesterol (40-60) mg/dL TSH (0.465-4.680) mIU/L Urine Protein 1+ H (Negative) Urine Glucose (UA) 4+ H (Negative) Urine Blood Moderate H (Negative) Ur Leukocyte Esterase Trace H (Negative) Urine RBC 6 H (0-5) /hpf Hyaline Casts 13 H (0-2) /lpf Urine Mucus Rare H (None) /hpf 10/30/16 10/30/16 10/30/16 Range/Units 03:37 09:13 09:15 WBC (3.8-10.6) k/uL RBC (4.30-5.90) m/uL Hgb (13.0-17.5) gm/dL Hct (39.0-53.0) % MCV (80.0-100.0) fL APTT (22.0-30.0) sec Sodium (137-145) mmol/L Chloride (98-107) mmol/L Carbon Dioxide (22-30) mmol/L BUN (9-20) mg/dL Glucose (74-99) mg/dL POC Glucose (mg/dL) (75-99) mg/dL Alkaline Phosphatase (38-126) U/L CK-MB (CK-2) 3.8 H* (0.0-2.4) ng/mL Troponin I 0.159 H* (0.000-0.034) ng/mL Total Protein (6.3-8.2) g/dL Albumin (3.5-5.0) g/dL HDL Cholesterol 75 H (40-60) mg/dL TSH 0.199 L (0.465-4.680) mIU/L Urine Protein (Negative) Urine Glucose (UA) (Negative) Urine Blood (Negative) Ur Leukocyte Esterase (Negative) Urine RBC (0-5) /hpf Hyaline Casts (0-2) /lpf Urine Mucus (None) /hpf 10/30/16 10/30/16 10/30/16 Range/Units 09:15 09:15 09:15 WBC 18.7 H (3.8-10.6) k/uL RBC 2.96 L (4.30-5.90) m/uL Hgb 9.9 L (13.0-17.5) gm/dL Hct 30.3 L (39.0-53.0) % MCV 102.3 H (80.0-100.0) fL APTT 46.8 H (22.0-30.0) sec Sodium 129 L (137-145) mmol/L Chloride 79 L* (98-107) mmol/L Carbon Dioxide 43 H* (22-30) mmol/L BUN 66 H (9-20) mg/dL Glucose 180 H (74-99) mg/dL POC Glucose (mg/dL) (75-99) mg/dL Alkaline Phosphatase 35 L (38-126) U/L CK-MB (CK-2) (0.0-2.4) ng/mL Troponin I (0.000-0.034) ng/mL Total Protein 5.7 L (6.3-8.2) g/dL Albumin 3.4 L (3.5-5.0) g/dL HDL Cholesterol (40-60) mg/dL TSH (0.465-4.680) mIU/L Urine Protein (Negative) Urine Glucose (UA) (Negative) Urine Blood (Negative) Ur Leukocyte Esterase (Negative) Urine RBC (0-5) /hpf Hyaline Casts (0-2) /lpf Urine Mucus (None) /hpf 10/30/16 Range/Units 12:03 WBC (3.8-10.6) k/uL RBC (4.30-5.90) m/uL Hgb (13.0-17.5) gm/dL Hct (39.0-53.0) % MCV (80.0-100.0) fL APTT (22.0-30.0) sec Sodium (137-145) mmol/L Chloride (98-107) mmol/L Carbon Dioxide (22-30) mmol/L BUN (9-20) mg/dL Glucose (74-99) mg/dL POC Glucose (mg/dL) 236 H (75-99) mg/dL Alkaline Phosphatase (38-126) U/L CK-MB (CK-2) (0.0-2.4) ng/mL Troponin I (0.000-0.034) ng/mL Total Protein (6.3-8.2) g/dL Albumin (3.5-5.0) g/dL HDL Cholesterol (40-60) mg/dL TSH (0.465-4.680) mIU/L Urine Protein (Negative) Urine Glucose (UA) (Negative) Urine Blood (Negative) Ur Leukocyte Esterase (Negative) Urine RBC (0-5) /hpf Hyaline Casts (0-2) /lpf Urine Mucus (None) /hpf Microbiology - Last 24 Hours (Table) 10/30/16 01:30 Urine Culture - Preliminary Urine,Voided Laboratory Results WBC 18.7 k/uL (3.8-10.6) H 10/30/16 09:15 RBC 2.96 m/uL (4.30-5.90) L 10/30/16 09:15 Hgb 9.9 gm/dL (13.0-17.5) L 10/30/16 09:15 Hct 30.3 % (39.0-53.0) L 10/30/16 09:15 MCV 102.3 fL (80.0-100.0) H 10/30/16 09:15 MCH 33.5 pg (25.0-35.0) 10/30/16 09:15 MCHC 32.8 g/dL (31.0-37.0) 10/30/16 09:15 RDW 14.4 % (11.5-15.5) 10/30/16 09:15 Plt Count 246 k/uL (150-450) 10/30/16 09:15 Neutrophils % 84 % 10/29/16 20:32 Lymphocytes % 6 % 10/29/16 20:32 Monocytes % 7 % 10/29/16 20:32 Eosinophils % 0 % 10/29/16 20:32 Basophils % 0 % 10/29/16 20:32 Neutrophils # 14.7 k/uL (1.3-7.7) H 10/29/16 20:32 Lymphocytes # 1.1 k/uL (1.0-4.8) 10/29/16 20:32 Monocytes # 1.2 k/uL (0-1.0) H 10/29/16 20:32 Eosinophils # 0.1 k/uL (0-0.7) 10/29/16 20:32 Basophils # 0.1 k/uL (0-0.2) 10/29/16 20:32 Macrocytosis Slight 10/30/16 09:15 PT 10.2 sec (9.0-12.0) 10/29/16 20:32 INR 1.0 (<1.1) 10/29/16 20:32 APTT 46.8 sec (22.0-30.0) H 10/30/16 09:15 Sodium 129 mmol/L (137-145) L 10/30/16 09:15 Potassium 5.1 mmol/L (3.5-5.1) 10/30/16 09:15 Chloride 79 mmol/L (98-107) L* 10/30/16 09:15 Carbon Dioxide 43 mmol/L (22-30) H* 10/30/16 09:15 Anion Gap 7 mmol/L 10/30/16 09:15 BUN 66 mg/dL (9-20) H 10/30/16 09:15 Creatinine 0.88 mg/dL (0.66-1.25) 10/30/16 09:15 Est GFR (MDRD) Af Amer >60 (>60 ml/min/1.73 sqM) 10/30/16 09:15 Est GFR (MDRD) Non-Af >60 (>60 ml/min/1.73 sqM) 10/30/16 09:15 Glucose 180 mg/dL (74-99) H 10/30/16 09:15 POC Glucose (mg/dL) 236 mg/dL (75-99) H 10/30/16 12:03 POC Glu [employer] ID Abhinav Moreno 10/30/16 12:[address] Glu mg/dL 117 mg/dL 10/30/16 09:15 Hemoglobin A1c 5.7 % (4.2-6.1) 10/30/16 09:15 Calcium 8.7 mg/dL (8.4-10.2) 10/30/16 09:15 Phosphorus 2.9 mg/dL (2.5-4.5) 10/29/16 20:32 Magnesium 2.6 mg/dL (1.6-2.3) H 10/29/16 20:32 Total Bilirubin 0.9 mg/dL (0.2-1.3) 10/30/16 09:15 AST 41 U/L (17-59) 10/30/16 09:15 ALT 40 U/L (21-72) 10/30/16 09:15 Alkaline Phosphatase 35 U/L (38-126) L 10/30/16 09:15 Total Creatine Kinase 89 U/L (55-170) 10/30/16 09:15 CK-MB (CK-2) 3.8 ng/mL (0.0-2.4) H* 10/30/16 09:15 CK-MB (CK-2) Rel Index 4.3 10/30/16 09:15 Troponin I 0.159 ng/mL (0.000-0.034) H* 10/30/16 09:15 Total Protein 5.7 g/dL (6.3-8.2) L 10/30/16 09:15 Albumin 3.4 g/dL (3.5-5.0) L 10/30/16 09:15 Triglycerides 135 mg/dL (<150) 10/30/16 03:37 Cholesterol 170 mg/dL (<200) 10/30/16 03:37 LDL Cholesterol, Calc 68 mg/dL (0-99) 10/30/16 03:37 HDL Cholesterol 75 mg/dL (40-60) H 10/30/16 03:37 TSH 0.199 mIU/L (0.465-4.680) L 10/30/16 09:13 Free T4 1.71 ng/dL (0.78-2.19) 10/30/16 09:13 Urine Color Yellow 10/30/16 01:30 Urine Appearance Clear (Clear) 10/30/16 01:30 Urine pH 6.0 (5.0-8.0) 10/30/16 01:30 Ur Specific [place] 1.022 (1.001-1.035) 10/30/16 01:30 Urine Protein 1+ (Negative) H 10/30/16 01:30 Urine Glucose (UA) 4+ (Negative) H 10/30/16 01:30 Urine Ketones Negative (Negative) 10/30/16 01:30 Urine Blood Moderate (Negative) H 10/30/16 01:30 Urine Nitrite Negative (Negative) 10/30/16 01:30 Urine Bilirubin Negative (Negative) 10/30/16 01:30 Urine Urobilinogen <2.0 mg/dL (<2.0) 10/30/16 01:30 Ur Leukocyte Esterase Trace (Negative) H 10/30/16 01:30 Urine RBC 6 /hpf (0-5) H 10/30/16 01:30 Urine WBC 4 /hpf (0-5) 10/30/16 01:30 Ur Squamous Epith Cells 1 /hpf (0-4) 10/30/16 01:30 Hyaline Casts 13 /lpf (0-2) H 10/30/16 01:30 Urine Mucus Rare /hpf (None) H 10/30/16 01:30 Thrombosis Risk Factor Assmnt - DVT/VTE Prophylaxis DVT/VTE Prophylaxis: Pharmacologic Prophylaxis ordered - Choose All That Apply Any of the Below Risk Factors Present?: Yes Each Factor Represents 1 point: Abnormal pulmonary function (COPD), Obesity ( BMI >25), Serious lung disease incl. pneumonia (< 1month) Other Risk Factors: Yes Each Risk Factor Represents 3 Points: Age 75 years or older Other congenital or acquired thrombophilia - If yes, enter type in comment: No Thrombosis Risk Factor Assessment Total Risk Factor Score: 6 Thrombosis Risk Factor Assessment Level: High Risk Assessment and Plan Plan: Unstable angina with elevated troponin possibly an STEMI, however with the rapid ventricular rate it's most likely secondary to mismatch perfusion, patient 's heart rate is now better controlled, initial Cardizem was given which was switched to oral Toprol all 1. A. fib new onset paroxysmal with rapid ventricular rate, episodes of atrial flutter prior to admission, patient currently is on IV Cardizem which was switched to metoprolol twice a day, patient was seen by cardiology with plans for IV heparin at this time any to evaluate for long-term anticoagulation, TSH will be evaluated 2. Severe aortic stenosis which was recently evaluated with an echocardiogram 10/24/2016 X 3. Systolic dysfunction with ejection fraction of 40-45% currently on metoprolol 50 mg twice a day Z adjusted to hydrate 4. COPD exacerbation with pneumonia on IV Solu Medrol nebulized L albuterol and Atrovent, IV Levaquin 5. 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 Neurocognitive deficit from dementia currently unknown type 7. Normovolemic Hyponatremia possibly related to poor oral intake, SIADH cannot be ruled out and serum osmolality will be obtained, he is on h thiazide diuretics which is discontinued 8. Hypercarbic respiratory failure, monitor for CO2 related obtundation might need BiPAP recommend sleep study as an outpatient 9. Azotemia CK D stage II monitor for hypotension and renal function 10. Hyperglycemia with hemoglobin A1c of 5.7, most likely steroid-induced, Accu -Cheks are in place with NovoLog coverage, patient's on Solu-Medrol with steroid scale 11. Anemia possibly iron deficiency, no acute GI losses noted at this time Iron levels will be noted, microscopic hematuria noted on routine examination, consult Dr. Miles, outpatient urology consultation 12 Leukocytosis most likely secondary to oral prednisone use. Which was given prior to his admission she currently is on Solu-Medrol 13 Microscopic hematuria RBC of 6, patient would need workup down the line with urology as an outpatient 14 Generalized debility. Patient would be sent to skilled ECF after discharge [facility]
[2016-10-30 17:12] LABS: Glucose,Whole Blood 205 mg/dL (75-99)
[2016-10-30] MEDS ORDERED: METOPROLOL TARTRATE 5 MG/5 ML VIAL IVP STA ×2 (18:27→19:01)
[2016-10-30] MEDS ORDERED: DEXTROSE 5% IN WATER 100 ML with AMIODARONE 150 MG IV ONE (19:00)
[2016-10-30] MEDS: AMIODARONE 450 MG in DEXTROSE 5% IN WATER 250 ML IV SCH ×2 (19:03)
[2016-10-30] MEDS: METOPROLOL TARTRATE 50 MG TAB PO SCH (19:55)
[2016-10-30] MEDS: methylPREDNISolone SOD SUCCI 125 MG/2 ML VIAL IV SCH (19:56)
[2016-10-30] MEDS: LISINOPRIL 5 MG TAB PO SCH (19:58)
[2016-10-30] MEDS: ATORVASTATIN 80 MG TAB PO SCH (19:58)
[2016-10-30] MEDS: FAMOTIDINE 20 MG TAB PO SCH (19:59)
[2016-10-30] MEDS: SYMBICORT 160-4.5 MCG INHALER INHALATION SCH (20:32)
[2016-10-30] MEDS: MORPHINE SULFATE 4 MG/ML SYRINGE IV PRN (21:01)
[2016-10-30 21:10] LABS: Glucose,Whole Blood 259 mg/dL (75-99)
[2016-10-31] MEDS ORDERED: methylPREDNISolone SOD SUCCI 125 MG/2 ML VIAL ONE
[2016-10-31 06:36] LABS: Glucose,Whole Blood 121 mg/dL (75-99)
[2016-10-31] MEDS: HEPARIN SODIUM,PORCINE/D5W PMX 25,000 UNIT in DEXTROSE/WATER 1 500ML.BAG IV SCH (06:43)
[2016-10-31] MEDS: AMIODARONE 450 MG in DEXTROSE 5% IN WATER 250 ML IV SCH ×6 (06:44→19:29)
[2016-10-31] MEDS: methylPREDNISolone SOD SUCCI 125 MG/2 ML VIAL IV SCH ×2 (06:44→06:45)
[2016-10-31] MEDS: SODIUM CHLORIDE 0.9% 1,000 ML IV SCH ×2 (06:44→14:05)
[2016-10-31 06:49] LABS: CH 33.7; CHCM 32.8; HDW 2.84; HGB 8.5 gm/dL (13.0-17.5); MCH 32.6 pg (25.0-35.0); MCHC 31.5 g/dL (31.0-37.0); MCV 103.4 fL (80.0-100.0); Macrocytosis Slight; Mean Platelet Volume 7.9; RBC 2.61 m/uL (4.30-5.90); RDW 14.7 % (11.5-15.5); WBC 16.8 k/uL (3.8-10.6)
[2016-10-31] MEDS: INSULIN LISPRO (humaLOG) 300 UNIT/3 ML VIAL SQ SCH ×4 (07:17→22:45)
[2016-10-31 07:42] LABS: ALT 44 U/L (21-72); AST 32 U/L (17-59); Alkaline Phosphatase 32 U/L (38-126); Blood Urea Nitrogen 64 mg/dL (9-20); Calcium 7.9 mg/dL (8.4-10.2); Glucose 111 mg/dL (74-99); Non-African American GFR(MDRD) >60 (>60 ml/min/1.73 sqM); Sodium 129 mmol/L (137-145); Total Bilirubin 0.6 mg/dL (0.2-1.3); Total Protein 4.9 g/dL (6.3-8.2)
[2016-10-31 07:56] LABS: Anion Gap 3 mmol/L; Carbon Dioxide 46 mmol/L (22-30); Chloride 80 mmol/L (98-107)
[2016-10-31] MEDS: LEVALBUTEROL NEB (CONC) 1.25 MG/0.5 ML AMP INHALATION SCH ×4 (08:33→19:43)
[2016-10-31] MEDS: SYMBICORT 160-4.5 MCG INHALER INHALATION SCH ×2 (08:33→19:43)
[2016-10-31] MEDS: IPRATROPIUM 0.5 MG/2.5 ML NEBU INHALATION SCH ×4 (08:33→19:43)
[2016-10-31] MEDS ORDERED: ASPIRIN 81 MG CHEW PO SCH (09:00)
[2016-10-31] MEDS: FAMOTIDINE 20 MG TAB PO SCH ×2 (09:48→20:24)
[2016-10-31] MEDS: ASPIRIN 325 MG TAB PO SCH (09:48)
--- NOTE | 2016-10-31 11:16 | P.PN ---
Subjective This is an 85-year-old gentleman with no current known PCP he was recently transferred from [facility] to [facility] on [facility] for skilled rehabilitation. He was admitted [facility] secondary to worsening hypoxemia secondary to lack of power,. He has severe decreased hearing, underlying advanced COPD on it hypoxemic respiratory failure hypertension neurocognitive deficit from dementia.. He was at [facility] on [facility] when he arrived he was tachypneic, heart rate was in the 190s, extra metoprolol 50 mg was given for total of 75 mg, patient was denying chest pain at that time until a few minutes later, the metoprolol did not work he subsequently had some chest discomfort nitroglycerin was given with instructions to transfer him via EMS to the emergency room. In the emergency room he had an EKG what Y complex tachycardia heart rate of 164 , atrial flutter of 96, QT of 449 troponin is slightly elevated at 0.153 Additional information from [facility] shows an echocardiogram showed ejection fraction 40-45%, severe aortic stenosis, chest x-ray showed patchy density right lung base which may reflect infiltrate or atelectasis,, patient was seen consultation by cardiology and pulmonary medicine. 10/31: Heart rate is currently running in the 60s with monitor of atrial fibrillation. White count is slightly improving at 16.8, hemoglobin is dropped 8.5. Sodium remained the same at 129 with chloride at 80 and carbon dioxide 46. Troponins have been 0.129, 0.153 and 0.159. Triglycerides 135, cholesterol 170, LDL 68, HDL 75. TSH 0.199 and free T4 1 0.71. Echocardiogram reveals moderate aortic stenosis, mild mitral regurgitation, mild tricuspid regurgitation, mild pulmonary hypertension, borderline concentric left ventricular hypertrophy, EF 35-40%, mild aortic regurgitation. Cardiology has increased his beta hollie and discontinued Cardizem. The patient was started on amiodarone drip yesterday evening. He is continued on heparin drip for now. Eliquis coverage is being checked. Patient has been seen by Dr. Cortez. He is currently on IV Solu-Medrol at 60 mg every 6 hours and will be decreased to 40mg every 8 hours. Objective - Vital Signs Vital signs: Vital Signs Temp 98.1 F 10/31/16 04:00 Pulse 62 10/31/16 04:00 Resp 18 10/31/16 04:00 BP 109/62 10/31/16 04:00 Pulse Ox 94 L 10/31/16 04:00 Intake & Output 10/30/16 10/31/16 10/31/16 18:59 06:59 18:59 Intake Total 870 1730 Output Total 1000 Balance 870 730 Weight 71.5 kg Intake: Intake, IV Titration 630 1490 Amount Amiodarone 450 mg In 272 Dextrose 5% in Water 250 ml @ 1 MG/MIN 34.53 mls/ hr IV .Q7H31M DIANA Rx#: [id number] Dextrose 5% in Water 100 618 ml @ 618 mls/hr IV .Q10M ONE with Amiodarone 150 mg Rx#:[id number] Diltiazem 125 mg In 30 Sodium Chloride 0.9% 100 ml @ 5 MG/HR 5 mls/hr IV .Q24H DIANA Rx#:[id number] Levofloxacin 750Mg-D5w 150 Pmx 750 mg In Dextrose/ Water 1 150ml.bag @ 100 mls/hr IVPB Q24HR DIANA Rx# :[id number] Sodium Chloride 0.9% 1, 450 600 000 ml @ 75 mls/hr IV . [id number] DIANA Rx#:[id number] Oral 240 240 Output: Urine 1000 Other: Voiding Method Urinal Urinal # Voids 0 # Bowel Movements 0 - Exam General appearance: average body habitus, cooperative, no disheveled, no mild distress, no morbidly obese, no acute distress, no obese, no severe distress, no thin - EENT Eyes: anicteric sclerae, PERRLA, poor dentition ENT: hard of hearing, NA/AT, normal oropharynx - Neck Neck: normal ROM - Respiratory Respiratory: bilateral: CTA, negative: diminished, dullness, rales - Cardiovascular Rhythm: regular Heart sounds: normal: S1, S2 Abnormal Heart Sounds: no systolic murmur, no diastolic murmur, no rub, no S3 Gallop, no S4 Gallop, no click, no other - Gastrointestinal General gastrointestinal: soft - Integumentary Integumentary: decreased turgor, normal - Musculoskeletal Musculoskeletal: strength equal bilaterally - Labs CBC & Chem 7: 10/31/16 06:05 10/31/16 06:05 Labs: Abnormal Lab Results - Last 24 Hours (Table) 10/30/16 10/30/1617 Range/Units 09:13 09:15 09:15 WBC (3.8-10.6) k/uL RBC (4.30-5.90) m/uL Hgb (13.0-17.5) gm/dL Hct (39.0-53.0) % MCV (80.0-100.0) fL APTT 46.8 H (22.0-30.0) sec Sodium (137-145) mmol/L Chloride (98-107) mmol/L Carbon Dioxide (22-30) mmol/L BUN (9-20) mg/dL Glucose (74-99) mg/dL POC Glucose (mg/dL) (75-99) mg/dL Calcium (8.4-10.2) mg/dL Alkaline Phosphatase (38-126) U/L CK-MB (CK-2) 3.8 H* (0.0-2.4) ng/mL Troponin I 0.159 H* (0.000-0.034) ng/mL Total Protein (6.3-8.2) g/dL Albumin (3.5-5.0) g/dL TSH 0.199 L (0.465-4.680) mIU/L 10/30/16 10/30/16 10/30/16 Range/Units 09:15 09:15 12:03 WBC 18.7 H (3.8-10.6) k/uL RBC 2.96 L (4.30-5.90) m/uL Hgb 9.9 L (13.0-17.5) gm/dL Hct 30.3 L (39.0-53.0) % MCV 102.3 H (80.0-100.0) fL APTT (22.0-30.0) sec Sodium 129 L (137-145) mmol/L Chloride 79 L* (98-107) mmol/L Carbon Dioxide 43 H* (22-30) mmol/L BUN 66 H (9-20) mg/dL Glucose 180 H (74-99) mg/dL POC Glucose (mg/dL) 236 H (75-99) mg/dL Calcium (8.4-10.2) mg/dL Alkaline Phosphatase 35 L (38-126) U/L CK-MB (CK-2) (0.0-2.4) ng/mL Troponin I (0.000-0.034) ng/mL Total Protein 5.7 L (6.3-8.2) g/dL Albumin 3.4 L (3.5-5.0) g/dL TSH (0.465-4.680) mIU/L 10/30/16 10/30/16 10/31/16 Range/Units 17:11 21:09 06:05 WBC 16.8 H (3.8-10.6) k/uL RBC 2.61 L (4.30-5.90) m/uL Hgb 8.5 L (13.0-17.5) gm/dL Hct 27.0 L (39.0-53.0) % MCV 103.4 H (80.0-100.0) fL APTT (22.0-30.0) sec Sodium (137-145) mmol/L Chloride (98-107) mmol/L Carbon Dioxide (22-30) mmol/L BUN (9-20) mg/dL Glucose (74-99) mg/dL POC Glucose (mg/dL) 205 H 259 H (75-99) mg/dL Calcium (8.4-10.2) mg/dL Alkaline Phosphatase (38-126) U/L CK-MB (CK-2) (0.0-2.4) ng/mL Troponin I (0.000-0.034) ng/mL Total Protein (6.3-8.2) g/dL Albumin (3.5-5.0) g/dL TSH (0.465-4.680) mIU/L 10/31/16 10/31/16 Range/Units 06:05 06:34 WBC (3.8-10.6) k/uL RBC (4.30-5.90) m/uL Hgb (13.0-17.5) gm/dL Hct (39.0-53.0) % MCV (80.0-100.0) fL APTT (22.0-30.0) sec Sodium 129 L (137-145) mmol/L Chloride 80 L* (98-107) mmol/L Carbon Dioxide 46 H* (22-30) mmol/L BUN 64 H (9-20) mg/dL Glucose 111 H (74-99) mg/dL POC Glucose (mg/dL) 121 H (75-99) mg/dL Calcium 7.9 L (8.4-10.2) mg/dL Alkaline Phosphatase 32 L (38-126) U/L CK-MB (CK-2) (0.0-2.4) ng/mL Troponin I (0.000-0.034) ng/mL Total Protein 4.9 L (6.3-8.2) g/dL Albumin 2.9 L (3.5-5.0) g/dL TSH (0.465-4.680) mIU/L Microbiology - Last 24 Hours (Table) 10/30/16 01:30 Urine Culture - Preliminary Urine,Voided Assessment and Plan Plan: 1. Unstable angina with elevated troponin possibly an STEMI has been ruled out by cardiology. 2. A. fib new onset paroxysmal with rapid ventricular rate, episodes of atrial flutter prior to admission. Cardiology consult is appreciated. Patient is currently on amiodarone drip. Lopressor has been increased to 50 mg twice daily. Eliquis coverage is being checked. Patient is currently on heparin drip. 3. Severe aortic stenosis which was recently evaluated with an echocardiogram 10/24/2016. Repeat echo is showing moderate aortic stenosis. 4. Systolic dysfunction with ejection fraction of 40-45% currently on metoprolol 50 mg twice a day 5. COPD exacerbation with probable gram-negative pneumonia. Continue IV Solu- Medrol with plan to taper, nebulizer treatments with Xopenex and Atrovent, Symbicort. 6. 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 Neurocognitive deficit from dementia currently unknown type 8. Normovolemic Hyponatremia possibly related to poor oral intake, SIADH cannot be ruled out and serum osmolality will be obtained. He has been on hydrochlorothiazide which has been discontinued. 9. Acute hypoxic and hypercarbic respiratory failure, monitor for CO2 related obtundation might need BiPAP recommend sleep study as an outpatient 10. Azotemia CKD stage II monitor for hypotension and renal function 11. Hyperglycemia with hemoglobin A1c of 5.7, most likely steroid-induced, Accu -Cheks are in place with NovoLog coverage, patient's on Solu-Medrol with steroid scale 12. Anemia possibly iron deficiency, no acute GI losses noted at this time Iron levels will be noted, microscopic hematuria noted on routine examination, consult Dr. Miles, outpatient urology consultation 13. Leukocytosis most likely secondary to oral prednisone use. Which was given prior to his admission. 14. Microscopic hematuria RBC of 6, patient would need workup down the line with urology as an outpatient 15. Generalized debility. Discharge plan: Return to [facility] on Thursday Impression and plan of care have been directed as dictated by the signing physician. Sharyn Thompson nurse practitioner acting as scribe for signing physician. Time with Patient: Greater than 30
[2016-10-31] MEDS: METOPROLOL TARTRATE 50 MG TAB PO SCH ×2 (11:28→20:24)
[2016-10-31 11:51] LABS: Glucose,Whole Blood 162 mg/dL (75-99)
--- NOTE | 2016-10-31 12:15 | P.PN ---
Subjective Principal diagnosis: Acute exacerbation of severe COPD This is a pleasant 85-year-old gentleman who his a past medical history of hyperlipidemia, hypertension, COPD. He was recently at [facility]. From there he was transferred to [facility] on the [place] and shortly after that he was found to be hypotensive and tachycardic and EMS was called. He was also hypoxic and noted to be in SVT. He was given a Adenocard in the emergency room. from there he was found to be in atrial fibrillation with a rapid ventricular response. His echocardiogram revealed impaired left ventricular systolic function with estimated ejection fraction 35-40%. There is a severely thickened aortic valve as well. His chest x-ray revealed a patchy density in the right lung base with mild left basilar pleural thickening and we are consulted for the same. He is seen today in consultation on the selective care unit. He is currently sitting up in the chair at the bedside. He is dyspneic with minimal exertion. He denies any significant shortness of breath, cough or congestion. He is currently maintaining O2 saturations in the low 90s on 4 L/m per nasal cannula. He's been afebrile. Leukocytosis currently 18.7. Hyponatremia at 129, hypochloremia at 79 and a CO2 of 43. Troponins mildly elevated. He is on a heparin drip. Reevaluated today on 10/31/2016, patient is about the same, less shortness of breath overall. He is now on bronchodilators, antibiotics, and steroids. Continues to have leukocytosis with WBC count of 16.8 hemoglobin is 8.5 sodium is 129 renal profile is normal except for BUN of 64 his bicarb is 46 and that's not unusual considering his underlying COPD patient is trying to metabolically compensate for his underlying respiratory acidosis. Objective - Vital Signs Vital signs: Vital Signs Temp 96.9 F L 10/31/16 08:00 Pulse 84 10/31/16 11:40 Resp 16 10/31/16 08:00 BP 110/54 10/31/16 08:00 Pulse Ox 94 L 10/31/16 08:34 Intake & Output 10/30/16 10/31/16 10/31/16 18:59 06:59 18:59 Intake Total 870 1730 Output Total 1000 Balance 870 730 Weight 71.5 kg Intake: Intake, IV Titration 630 1490 Amount Amiodarone 450 mg In 272 Dextrose 5% in Water 250 ml @ 1 MG/MIN 34.53 mls/ hr IV .Q7H31M DIANA Rx#: [id number] Dextrose 5% in Water 100 618 ml @ 618 mls/hr IV .Q10M ONE with Amiodarone 150 mg Rx#:[id number] Diltiazem 125 mg In 30 Sodium Chloride 0.9% 100 ml @ 5 MG/HR 5 mls/hr IV .Q24H DIANA Rx#:[id number] Levofloxacin 750Mg-D5w 150 Pmx 750 mg In Dextrose/ Water 1 150ml.bag @ 100 mls/hr IVPB Q24HR DIANA Rx# :[id number] Sodium Chloride 0.9% 1, 450 600 000 ml @ 75 mls/hr IV . [id number] DIANA Rx#:[id number] Oral 240 240 Output: Urine 1000 Other: Voiding Method Urinal Urinal # Voids 0 # Bowel Movements 0 - Exam GENERAL EXAM: Alert, comfortable in no apparent distress. HEAD: Normocephalic. EYES: Normal reaction of pupils, equal size. NOSE: Clear with pink turbinates. THROAT: No erythema or exudates. NECK: No masses, no JVD. CHEST: No chest wall deformity. LUNGS: Equal air entry with bilateral wheeze, few scattered rhonchi, diminished. CVS: S1 and S2 normal with an audible murmur, irregular rhythm. ABDOMEN: No hepatosplenomegaly, normal bowel sounds, no guarding or rigidity. extremities: There is trace peripheral edema. No clubbing, no cyanosis. Peripheral pulses are intact. - Labs CBC & Chem 7: 10/31/16 06:05 10/31/16 06:05 Labs: Abnormal Lab Results - Last 24 Hours (Table) 10/30/16 10/30/16 10/31/16 Range/Units 17:11 21:09 06:05 WBC 16.8 H (3.8-10.6) k/uL RBC 2.61 L (4.30-5.90) m/uL Hgb 8.5 L (13.0-17.5) gm/dL Hct 27.0 L (39.0-53.0) % MCV 103.4 H (80.0-100.0) fL APTT (22.0-30.0) sec Sodium (137-145) mmol/L Chloride (98-107) mmol/L Carbon Dioxide (22-30) mmol/L BUN (9-20) mg/dL Glucose (74-99) mg/dL POC Glucose (mg/dL) 205 H 259 H (75-99) mg/dL Calcium (8.4-10.2) mg/dL Alkaline Phosphatase (38-126) U/L Total Protein (6.3-8.2) g/dL Albumin (3.5-5.0) g/dL 10/31/16 10/31/16 10/31/16 Range/Units 06:05 06:34 09:05 WBC (3.8-10.6) k/uL RBC (4.30-5.90) m/uL Hgb (13.0-17.5) gm/dL Hct (39.0-53.0) % MCV (80.0-100.0) fL APTT 59.4 H (22.0-30.0) sec Sodium 129 L (137-145) mmol/L Chloride 80 L* (98-107) mmol/L Carbon Dioxide 46 H* (22-30) mmol/L BUN 64 H (9-20) mg/dL Glucose 111 H (74-99) mg/dL POC Glucose (mg/dL) 121 H (75-99) mg/dL Calcium 7.9 L (8.4-10.2) mg/dL Alkaline Phosphatase 32 L (38-126) U/L Total Protein 4.9 L (6.3-8.2) g/dL Albumin 2.9 L (3.5-5.0) g/dL 10/31/16 Range/Units 11:49 WBC (3.8-10.6) k/uL RBC (4.30-5.90) m/uL Hgb (13.0-17.5) gm/dL Hct (39.0-53.0) % MCV (80.0-100.0) fL APTT (22.0-30.0) sec Sodium (137-145) mmol/L Chloride (98-107) mmol/L Carbon Dioxide (22-30) mmol/L BUN (9-20) mg/dL Glucose (74-99) mg/dL POC Glucose (mg/dL) 162 H (75-99) mg/dL Calcium (8.4-10.2) mg/dL Alkaline Phosphatase (38-126) U/L Total Protein (6.3-8.2) g/dL Albumin (3.5-5.0) g/dL Microbiology - Last 24 Hours (Table) 10/30/16 01:30 Urine Culture - Final Urine,Voided Assessment and Plan Plan: #1 Acute exacerbation of chronic obstructive pulmonary disease complicated by right lower lobe pneumonia. #2 New-onset atrial fibrillation with rapid ventricular response, currently on heparin. #3 Severe aortic stenosis. #4 Cardiomyopathy with impaired left ventricular systolic function. #5 Hypertension. #6 Dementia. Recommendation: Continue present meds and treatment plan, consider switching heparin to eliquis, discharge planning early next week. May have to consider social media senior associate evaluation for possible discharge planning to a facility/ECF yesterday, I touched bases regarding CODE STATUS with the patient and with the family, patient is clearly DO NOT RESUSCITATE. And this is mostly based on his family's wishes, patient is not mentally competent to make such decision. Time with Patient: Less than 30
[2016-10-31] MEDS: MULTIVITAMINS, THERA 1 EACH TAB PO SCH (12:42)
[2016-10-31] MEDS: FOLIC ACID 1 MG TAB PO SCH (12:42)
[2016-10-31 13:36] LABS: Iron 162 ug/dL (49-181)
[2016-10-31 13:45] LABS: % Iron Saturation 68.4 % (20-50); Total Iron Binding Capacity 237 ug/dL (261-462)
[2016-10-31] MEDS ORDERED: METOPROLOL TARTRATE 5 MG/5 ML VIAL IVP ONE (14:11)
--- NOTE | 2016-10-31 14:58 | PN ---
This gentleman has end-stage COPD, non-ST elevation OK, atrial fibrillation and is a high-risk for bleeding. He has dropped his hemoglobin substantially. Yesterday, he went into atrial flutter with a rapid rate, requiring IV amiodarone. I am recommending that we discontinue heparin in view of the drop in hemoglobin and extensive areas of ecchymosis all over his upper and lower limbs. Will also treat him with amiodarone orally after the IV amiodarone is completed and from a cardiac standpoint, no other aggressive intervention is advised. Blood pressure today is 108/70, pulse rate is about 90 per minute, sinus, S1, S2 heard normally. Short systolic murmur noted. Lungs reveal diminished air entry. Abdomen and lower extremity exam is unchanged.
[2016-10-31] MEDS: LEVOFLOXACIN 750MG-D5W PMX 750 MG in DEXTROSE/WATER 1 150ML.BAG IVPB SCH (16:15)
[2016-10-31] MEDS: methylPREDNISolone SOD SUCCI 40 MG/ML 1 ML VIAL IV SCH (16:16)
[2016-10-31 17:22] LABS: Glucose,Whole Blood 195 mg/dL (75-99)
[2016-10-31] MEDS: MORPHINE SULFATE 4 MG/ML SYRINGE IV PRN (20:11)
[2016-10-31] MEDS: ATORVASTATIN 80 MG TAB PO SCH (20:24)
[2016-10-31] MEDS: LISINOPRIL 5 MG TAB PO SCH (20:24)
[2016-10-31] MEDS: AMIODARONE 200 MG TAB PO SCH (20:24)
[2016-10-31 21:09] LABS: Glucose,Whole Blood 166 mg/dL (75-99)
[2016-11-01] MEDS: methylPREDNISolone SOD SUCCI 40 MG/ML 1 ML VIAL IV SCH ×3 (00:35→17:10)
[2016-11-01 06:29] LABS: Glucose,Whole Blood 180 mg/dL (75-99)
[2016-11-01] MEDS: SODIUM CHLORIDE 0.9% 1,000 ML IV SCH ×2 (06:31→17:12)
[2016-11-01] MEDS: INSULIN LISPRO (humaLOG) 300 UNIT/3 ML VIAL SQ SCH ×4 (06:33→21:34)
[2016-11-01 06:47] LABS: Basophils % (A) 0 %; CH 34.3; CHCM 32.4; Eosinophils % (A) 0 %; HCT 27.4 % (39.0-53.0); HDW 2.84; HGB 8.5 gm/dL (13.0-17.5); Luc # (Auto) 0.19; Luc % (Auto) 1; Lymphocytes # (A) 0.8 k/uL (1.0-4.8); Lymphocytes % (A) 5 %; MCV 106.2 fL (80.0-100.0); Macrocytosis Moderate; Mean Platelet Volume 8.3; Monocytes # (A) 0.6 k/uL (0-1.0); Monocytes % (A) 4 %; Neutrophils # (A) 15.6 k/uL (1.3-7.7); Neutrophils % (A) 90 %; RBC 2.58 m/uL (4.30-5.90); WBC 17.3 k/uL (3.8-10.6); WBC (Perox) 18.59
[2016-11-01 07:02] LABS: ALT 43 U/L (21-72); AST 28 U/L (17-59); Alkaline Phosphatase 35 U/L (38-126); Blood Urea Nitrogen 59 mg/dL (9-20); Calcium 8.4 mg/dL (8.4-10.2); Chloride 81 mmol/L (98-107); Glucose 161 mg/dL (74-99); Non-African American GFR(MDRD) 59 (>60 ml/min/1.73 sqM); Potassium 5.7 mmol/L (3.5-5.1); Sodium 128 mmol/L (137-145); Total Bilirubin 0.9 mg/dL (0.2-1.3); Total Protein 5.2 g/dL (6.3-8.2)
[2016-11-01 07:28] LABS: Anion Gap 6 mmol/L
[2016-11-01 07:37] LABS: Carbon Dioxide 41 mmol/L (22-30)
[2016-11-01] MEDS: IPRATROPIUM 0.5 MG/2.5 ML NEBU INHALATION SCH ×4 (08:35→19:50)
[2016-11-01] MEDS: SYMBICORT 160-4.5 MCG INHALER INHALATION SCH ×2 (08:35→19:51)
[2016-11-01] MEDS: LEVALBUTEROL NEB (CONC) 1.25 MG/0.5 ML AMP INHALATION SCH ×4 (08:35→19:50)
[2016-11-01] MEDS: ASPIRIN 325 MG TAB PO SCH (10:53)
[2016-11-01] MEDS: AMIODARONE 200 MG TAB PO SCH ×2 (10:54→19:52)
[2016-11-01] MEDS: FOLIC ACID 1 MG TAB PO SCH (10:54)
[2016-11-01] MEDS: LEVOFLOXACIN 750MG-D5W PMX 750 MG in DEXTROSE/WATER 1 150ML.BAG IVPB SCH (10:55)
[2016-11-01] MEDS: METOPROLOL TARTRATE 50 MG TAB PO SCH ×2 (10:56→19:55)
--- NOTE | 2016-11-01 11:10 | P.PN ---
Subjective Principal diagnosis: Acute exacerbation of severe COPD This is a pleasant 85-year-old gentleman who his a past medical history of hyperlipidemia, hypertension, COPD. He was recently at [facility]. From there he was transferred to [facility] on the [place] and shortly after that he was found to be hypotensive and tachycardic and EMS was called. He was also hypoxic and noted to be in SVT. He was given a Adenocard in the emergency room. from there he was found to be in atrial fibrillation with a rapid ventricular response. His echocardiogram revealed impaired left ventricular systolic function with estimated ejection fraction 35-40%. There is a severely thickened aortic valve as well. His chest x-ray revealed a patchy density in the right lung base with mild left basilar pleural thickening and we are consulted for the same. He is seen today in consultation on the selective care unit. He is currently sitting up in the chair at the bedside. He is dyspneic with minimal exertion. He denies any significant shortness of breath, cough or congestion. He is currently maintaining O2 saturations in the low 90s on 4 L/m per nasal cannula. He's been afebrile. Leukocytosis currently 18.7. Hyponatremia at 129, hypochloremia at 79 and a CO2 of 43. Troponins mildly elevated. He is on a heparin drip. Reevaluated today on 10/31/2016, patient is about the same, less shortness of breath overall. He is now on bronchodilators, antibiotics, and steroids. Continues to have leukocytosis with WBC count of 16.8 hemoglobin is 8.5 sodium is 129 renal profile is normal except for BUN of 64 his bicarb is 46 and that's not unusual considering his underlying COPD patient is trying to metabolically compensate for his underlying respiratory acidosis. Reevaluated today 11/01/2016, patient is about the same, continues to complain of shortness of breath, intermittent cough and wheezing. Labs were reviewed, patient has a low sodium of 128 potassium of 5.7 bicarb is 41 which is expected considering his chronic respiratory hypercapnic failure, and his WBC count is 17.3 hemoglobin is 8.5. All his meds were reviewed, patient remains on bronchodilators and on methylprednisolone. 40 mg IV push every 8 hours. He is also on Symbicort. And Xopenex with Atrovent updrafts. Patient is basically maximized on therapy for COPD, however considering his severe underlying end- stage COPD, I don't expect much improvement. Hence discharge planning to a facility should be seriously considered. CODE STATUS remains in the meantime DO NOT RESUSCITATE. Objective - Vital Signs Vital signs: Vital Signs Temp 98 F 11/01/16 08:00 Pulse 88 11/01/16 08:36 Resp 20 11/01/16 08:00 BP 111/59 11/01/16 08:00 Pulse Ox 91 L 11/01/16 08:00 Intake & Output 10/31/16 11/01/16 11/01/16 18:59 06:59 18:59 Intake Total 1618 840 Output Total 550 1300 Balance 1068 -460 Weight 83 kg Intake: Intake, IV Titration 1478 600 Amount Amiodarone 450 mg In 128 Dextrose 5% in Water 250 ml @ 1 MG/MIN 34.53 mls/ hr IV .Q7H31M DIANA Rx#: [id number] Levofloxacin 750Mg-D5w 150 Pmx 750 mg In Dextrose/ Water 1 150ml.bag @ 100 mls/hr IVPB Q24HR DIANA Rx# :[id number] Sodium Chloride 0.9% 1, 1200 600 000 ml @ 75 mls/hr IV . [id number] DIANA Rx#:[id number] Oral 140 240 Output: Urine 550 1300 Uretheral ([place]) 1100 Other: Voiding Method Urinal Indwelling Catheter # Voids 0 # Bowel Movements 1 - Exam GENERAL EXAM: Alert, comfortable in no apparent distress. HEAD: Normocephalic. EYES: Normal reaction of pupils, equal size. NOSE: Clear with pink turbinates. THROAT: No erythema or exudates. NECK: No masses, no JVD. CHEST: No chest wall deformity. LUNGS: Equal air entry with bilateral wheeze, few scattered rhonchi, diminished. CVS: S1 and S2 normal with an audible murmur, irregular rhythm. ABDOMEN: No hepatosplenomegaly, normal bowel sounds, no guarding or rigidity. extremities: There is trace peripheral edema. No clubbing, no cyanosis. Peripheral pulses are intact. - Labs CBC & Chem 7: 11/01/16 06:30 11/01/16 06:25 Labs: Abnormal Lab Results - Last 24 Hours (Table) 10/31/16 10/31/16 10/31/16 Range/Units 06:05 11:49 16:54 WBC (3.8-10.6) k/uL RBC (4.30-5.90) m/uL Hgb (13.0-17.5) gm/dL Hct (39.0-53.0) % MCV (80.0-100.0) fL Neutrophils # (1.3-7.7) k/uL Lymphocytes # (1.0-4.8) k/uL Sodium 129 L (137-145) mmol/L Potassium (3.5-5.1) mmol/L Chloride 80 L* (98-107) mmol/L Carbon Dioxide 46 H* (22-30) mmol/L BUN 64 H (9-20) mg/dL Glucose 111 H (74-99) mg/dL POC Glucose (mg/dL) 162 H 195 H (75-99) mg/dL Calcium 7.9 L (8.4-10.2) mg/dL TIBC 237 L (261-462) ug/dL % Saturation 68.4 H (20-50) % Alkaline Phosphatase 32 L (38-126) U/L Total Protein 4.9 L (6.3-8.2) g/dL Albumin 2.9 L (3.5-5.0) g/dL 10/31/16 11/01/16 11/01/16 Range/Units 21:08 06:25 06:28 WBC (3.8-10.6) k/uL RBC (4.30-5.90) m/uL Hgb (13.0-17.5) gm/dL Hct (39.0-53.0) % MCV (80.0-100.0) fL Neutrophils # (1.3-7.7) k/uL Lymphocytes # (1.0-4.8) k/uL Sodium 128 L (137-145) mmol/L Potassium 5.7 H (3.5-5.1) mmol/L Chloride 81 L (98-107) mmol/L Carbon Dioxide 41 H* (22-30) mmol/L BUN 59 H (9-20) mg/dL Glucose 161 H (74-99) mg/dL POC Glucose (mg/dL) 166 H 180 H (75-99) mg/dL Calcium (8.4-10.2) mg/dL TIBC (261-462) ug/dL % Saturation (20-50) % Alkaline Phosphatase 35 L (38-126) U/L Total Protein 5.2 L (6.3-8.2) g/dL Albumin 3.2 L (3.5-5.0) g/dL 11/01/16 Range/Units 06:30 WBC 17.3 H (3.8-10.6) k/uL RBC 2.58 L (4.30-5.90) m/uL Hgb 8.5 L (13.0-17.5) gm/dL Hct 27.4 L (39.0-53.0) % MCV 106.2 H (80.0-100.0) fL Neutrophils # 15.6 H (1.3-7.7) k/uL Lymphocytes # 0.8 L (1.0-4.8) k/uL Sodium (137-145) mmol/L Potassium (3.5-5.1) mmol/L Chloride (98-107) mmol/L Carbon Dioxide (22-30) mmol/L BUN (9-20) mg/dL Glucose (74-99) mg/dL POC Glucose (mg/dL) (75-99) mg/dL Calcium (8.4-10.2) mg/dL TIBC (261-462) ug/dL % Saturation (20-50) % Alkaline Phosphatase (38-126) U/L Total Protein (6.3-8.2) g/dL Albumin (3.5-5.0) g/dL Microbiology - Last 24 Hours (Table) 10/30/16 01:30 Urine Culture - Final Urine,Voided Assessment and Plan Plan: #1 Acute exacerbation of chronic obstructive pulmonary disease complicated by right lower lobe pneumonia. #2 New-onset atrial fibrillation with rapid ventricular response, currently on heparin. #3 Severe aortic stenosis. #4 Cardiomyopathy with impaired left ventricular systolic function. #5 Hypertension. #6 Dementia. Recommendation: Continue present meds and treatment plan, consider switching heparin to eliquis, discharge planning early next week. May have to consider social service manager evaluation for possible discharge planning to a facility/ECF yesterday, I touched bases regarding CODE STATUS with the patient and with the family, patient is clearly DO NOT RESUSCITATE. And this is mostly based on his family's wishes, patient is not mentally competent to make such decision. Time with Patient: Less than 30
--- NOTE | 2016-11-01 11:18 | P.PN ---
Subjective Principal diagnosis: COPD in atrial fibrillation This is an 85-year-old gentleman who presented to the hospital with exacerbation of COPD along with atrial fibrillation. Because of the patient's risk of falls and significant drop in hemoglobin, he is not a candidate for anticoagulation. Blood pressure today 110/50 with heart rate in the 70s. Objective - Vital Signs Vital signs: Vital Signs Temp 98 F 11/01/16 08:00 Pulse 88 11/01/16 08:36 Resp 20 11/01/16 08:00 BP 111/59 11/01/16 08:00 Pulse Ox 91 L 11/01/16 08:00 Intake & Output 10/31/16 11/01/16 11/01/16 18:59 06:59 18:59 Intake Total 1618 840 Output Total 550 1300 Balance 1068 -460 Weight 83 kg Intake: Intake, IV Titration 1478 600 Amount Amiodarone 450 mg In 128 Dextrose 5% in Water 250 ml @ 1 MG/MIN 34.53 mls/ hr IV .[id number] DIANA Rx#: [id number] Levofloxacin 750Mg-D5w 150 Pmx 750 mg In Dextrose/ Water 1 150ml.bag @ 100 mls/hr IVPB Q24HR DIANA Rx# :[id number] Sodium Chloride 0.9% 1, 1200 600 000 ml @ 75 mls/hr IV . [id number] DIANA Rx#:[id number] Oral 140 240 Output: Urine 550 1300 Uretheral ([place]) 1100 Other: Voiding Method Urinal Indwelling Catheter # Voids 0 # Bowel Movements 1 - Exam PHYSICAL EXAMINATION: HEENT: Head is atraumatic, normocephalic. Pupils equal, round. Neck is supple. There is no elevated jugular venous pressure. HEART EXAMINATION: R S1 and S2 irregularly irregular systolic murmur is heard. CHEST EXAMINATION: Lungs reveal fine expiratory wheezes bilaterally with diminished air entry to the bases. ABDOMEN: Soft, nontender. Bowel sounds are heard. No organomegaly noted. EXTREMITIES: 2+ peripheral pulses with trace evidence of peripheral edema and no calf tenderness noted. NEUROLOGIC patient is awake, alert and oriented -3. . - Labs CBC & Chem 7: 11/01/16 06:30 11/01/16 06:25 Labs: Abnormal Lab Results - Last 24 Hours (Table) 10/31/16 10/31/16 10/31/16 Range/Units 06:05 11:49 16:54 WBC (3.8-10.6) k/uL RBC (4.30-5.90) m/uL Hgb (13.0-17.5) gm/dL Hct (39.0-53.0) % MCV (80.0-100.0) fL Neutrophils # (1.3-7.7) k/uL Lymphocytes # (1.0-4.8) k/uL Sodium 129 L (137-145) mmol/L Potassium (3.5-5.1) mmol/L Chloride 80 L* (98-107) mmol/L Carbon Dioxide 46 H* (22-30) mmol/L BUN 64 H (9-20) mg/dL Glucose 111 H (74-99) mg/dL POC Glucose (mg/dL) 162 H 195 H (75-99) mg/dL Calcium 7.9 L (8.4-10.2) mg/dL TIBC 237 L (261-462) ug/dL % Saturation 68.4 H (20-50) % Alkaline Phosphatase 32 L (38-126) U/L Total Protein 4.9 L (6.3-8.2) g/dL Albumin 2.9 L (3.5-5.0) g/dL 10/31/16 11/01/16 11/01/16 Range/Units 21:08 06:25 06:28 WBC (3.8-10.6) k/uL RBC (4.30-5.90) m/uL Hgb (13.0-17.5) gm/dL Hct (39.0-53.0) % MCV (80.0-100.0) fL Neutrophils # (1.3-7.7) k/uL Lymphocytes # (1.0-4.8) k/uL Sodium 128 L (137-145) mmol/L Potassium 5.7 H (3.5-5.1) mmol/L Chloride 81 L (98-107) mmol/L Carbon Dioxide 41 H* (22-30) mmol/L BUN 59 H (9-20) mg/dL Glucose 161 H (74-99) mg/dL POC Glucose (mg/dL) 166 H 180 H (75-99) mg/dL Calcium (8.4-10.2) mg/dL TIBC (261-462) ug/dL % Saturation (20-50) % Alkaline Phosphatase 35 L (38-126) U/L Total Protein 5.2 L (6.3-8.2) g/dL Albumin 3.2 L (3.5-5.0) g/dL 11/01/16 Range/Units 06:30 WBC 17.3 H (3.8-10.6) k/uL RBC 2.58 L (4.30-5.90) m/uL Hgb 8.5 L (13.0-17.5) gm/dL Hct 27.4 L (39.0-53.0) % MCV 106.2 H (80.0-100.0) fL Neutrophils # 15.6 H (1.3-7.7) k/uL Lymphocytes # 0.8 L (1.0-4.8) k/uL Sodium (137-145) mmol/L Potassium (3.5-5.1) mmol/L Chloride (98-107) mmol/L Carbon Dioxide (22-30) mmol/L BUN (9-20) mg/dL Glucose (74-99) mg/dL POC Glucose (mg/dL) (75-99) mg/dL Calcium (8.4-10.2) mg/dL TIBC (261-462) ug/dL % Saturation (20-50) % Alkaline Phosphatase (38-126) U/L Total Protein (6.3-8.2) g/dL Albumin (3.5-5.0) g/dL Microbiology - Last 24 Hours (Table) 10/30/16 01:30 Urine Culture - Final Urine,Voided Assessment and Plan Plan: Assessment and plan #1 atrial fibrillation with rapid ventricular response, paroxysmal in nature. Patient not a candidate for anticoagulation. #2 exacerbation of COPD with presence of pneumonia. #3 hypertension #4 advanced COPD # 5 dementia #6 aortic stenosis, recent echocardiogram with Doppler study performed last week at [facility] showed an ejection fraction of 40-45% with severe aortic stenosis. Plan Cardiology's perspective, we'll continue current medications. We will follow this patient now on an as-needed basis only, please don't hesitate to call with any questions. DNP note has been reviewed, I agree with a documented findings and plan of care. Patient was seen and examined.
--- NOTE | 2016-11-01 11:41 | PN ---
INTERVAL HISTORY: Patient is alert only, not oriented to place or time. No major events reported by nursing staff. Patient currently reporting no pain. PHYSICAL EXAMINATION: VITAL SIGNS: 97.9, 88, 17, 107/52, saturation is 93% on 4 L nasal cannula. LUNGS: Diminished bilaterally. HEART: Normal S1, S2. ABDOMEN: Soft, no tenderness. Positive bowel sounds in all 4 quadrants. PSYCH: Alert and oriented x1. SKIN: No new rash. IMAGING AND LABS: This morning white blood count 17, hemoglobin 8.5, platelets normal. Sodium 128, potassium 5.7. Glucose fluctuating between 161 and 195. Albumin is 3.2. ASSESSMENT AND PLAN: 1. Mild hyperkalemia, will monitor and repeat blood work in the morning. 2. Non-ST elevation myocardial infarction. Cardiology evaluated the patient and recommended medical management only. No intervention will be done. The patient will be maintained on cardioprotective medication. 3. Atrial fibrillation, heart rate controlled. Patient is not a candidate for anticoagulation, given his age and morbidities. 4. Dementia with encephalopathy seems to be at baseline. 5. Mild protein calorie malnutrition with decreased appetite. Will encourage p.o. intake. 6. Hyponatremia, likely related to dietary issues. 7. Leukocytosis, will monitor. 8. Chronic obstructive pulmonary disease. We will continue with the aggressive breathing treatments. 9. CODE STATUS: DNR. 10. Patient will benefit from hospice consult per family request.
[2016-11-01 11:53] LABS: Glucose,Whole Blood 166 mg/dL (75-99)
[2016-11-01] MEDS: MULTIVITAMINS, THERA 1 EACH TAB PO SCH (12:43)
[2016-11-01] MEDS: FAMOTIDINE 20 MG TAB PO SCH ×2 (12:43→19:53)
[2016-11-01 17:08] LABS: Glucose,Whole Blood 202 mg/dL (75-99)
[2016-11-01] MEDS: LISINOPRIL 5 MG TAB PO SCH (19:53)
[2016-11-01] MEDS: ATORVASTATIN 80 MG TAB PO SCH (19:53)
[2016-11-01 21:17] LABS: Glucose,Whole Blood 214 mg/dL (75-99)
[2016-11-01] MEDS: MORPHINE SULFATE 4 MG/ML SYRINGE IV PRN (21:35)
[2016-11-01 23:48] VITALS: BP 140/82; PULSE 92; RESP 18; TEMP 98.1
[2016-11-02] MEDS: methylPREDNISolone SOD SUCCI 40 MG/ML 1 ML VIAL IV SCH (00:44)
--- NOTE | 2016-11-14 14:56 | P.DS ---
Providers Date of admission: 10/29/16 21:37 Expected date of discharge: 11/02/16 Attending physician: Mariajose Messer Consults: 10/30/16 09:39 Consult Physician Routine Consulting Provider: Alex Cortez Consult Reason/Comments: copd exacerbation Do you want consulting provider notified?: Yes Primary care physician: Physician Nonstaff Hospital Course: This is an 85-year-old gentleman with no current known PCP he was recently transferred from [facility] to [facility] for skilled rehabilitation. He was admitted [facility] secondary to worsening hypoxemia secondary to lack of power,. He has severe decreased hearing, underlying advanced COPD on it hypoxemic respiratory failure hypertension neurocognitive deficit from dementia.. He was at [facility] when he arrived he was tachypneic, heart rate was in the 190s, extra metoprolol 50 mg was given for total of 75 mg, patient was denying chest pain at that time until a few minutes later, the metoprolol did not work he subsequently had some chest discomfort nitroglycerin was given with instructions to transfer him via EMS to the emergency room. In the emergency room he had an EKG what Y complex tachycardia heart rate of 164 , atrial flutter of 96, QT of 449 troponin is slightly elevated at 0.153 Additional information from [facility] shows an echocardiogram showed ejection fraction 40-45%, severe aortic stenosis, chest x-ray showed patchy density right lung base which may reflect infiltrate or atelectasis,, patient was seen consultation by cardiology and pulmonary medicine. 10/31: Heart rate is currently running in the 60s with monitor of atrial fibrillation. White count is slightly improving at 16.8, hemoglobin is dropped 8.5. Sodium remained the same at 129 with chloride at 80 and carbon dioxide 46. Troponins have been 0.129, 0.153 and 0.159. Triglycerides 135, cholesterol 170, LDL 68, HDL 75. TSH 0.199 and free T4 1 0.71. Echocardiogram reveals moderate aortic stenosis, mild mitral regurgitation, mild tricuspid regurgitation, mild pulmonary hypertension, borderline concentric left ventricular hypertrophy, EF 35-40%, mild aortic regurgitation. Cardiology has increased his beta hollie and discontinued Cardizem. The patient was started on amiodarone drip yesterday evening. He is continued on heparin drip for now. Eliquis coverage is being checked. Patient has been seen by Dr. Cortez. He is currently on IV Solu-Medrol at 60 mg every 6 hours and will be decreased to 40mg every 8 hours. 11/02: Patient was followed by cardiology with plan to continue current medications. Patient was also followed by Dr. Cortez. Patient was found early on the morning of November 02 with asystole on classroom monitor. Patient was found without respirations, heart beat for 1 full minute. Patient on . Discharge diagnoses: 1. Non-STEMI -- preliminary cause of 2. A. fib new onset paroxysmal with rapid ventricular rate 3. Severe aortic stenosis 4. Cardiomyopathy with Systolic dysfunction with ejection fraction of 40-45% 5. COPD exacerbation with probable gram-negative pneumonia. 6. 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 Neurocognitive deficit from dementia 8. Normovolemic Hyponatremia possibly related to poor oral intake, SIADH cannot be ruled out 9. Acute hypoxic and hypercarbic respiratory failure, 10. Azotemia CKD stage II 11. Hyperglycemia with hemoglobin A1c of 5.7, most likely steroid-induced 12. Anemia possibly iron deficiency, no acute GI losses 13. Leukocytosis most likely secondary to oral prednisone use. 14. Microscopic hematuria 15. Generalized debility. 16. Mild protein calorie malnutrition with poor oral intake Impression and plan of care have been directed as dictated by the signing physician. Sharyn Thompson nurse practitioner acting as scribe for signing physician. Patient Condition at Discharge: Undetermined Plan - Discharge Summary Discharge Medication List Aspirin [Adult Low Dose Aspirin EC] 81 mg PO DAILY 10/29/16 [History] Atorvastatin Calcium [Lipitor] 80 mg PO DAILY 10/29/16 [History] Budesonide/Formoterol Fumarate [Symbicort 160-4.5 Mcg Inhaler] 2 puff INHALATION RT-BID 10/29/16 [History] Cefuroxime Axetil [Ceftin] 500 mg PO BID 10/29/16 [History] Famotidine [Pepcid] 20 mg PO BID 10/29/16 [History] Folic Acid 0.4 mg PO DAILY 10/29/16 [History] Hydrochlorothiazide [Hydrodiuril] 12.5 mg PO DAILY 10/29/16 [History] Ipratropium-Albuterol Nebulize [Duoneb 0.5 mg-3 mg/3 ml Soln] 3 ml INHALATION RT -QID 10/29/16 [History] Lisinopril [Zestril] 20 mg PO DAILY 10/29/16 [History] Metoprolol Tartrate [Lopressor] 25 mg PO BID 10/29/16 [History] Multivitamins, Thera [Multivitamin (formulary)] 1 tab PO DAILY 10/29/16 [History ] Nitroglycerin Sl Tabs [Nitrostat] 0.4 mg SUBLINGUAL Q5M PRN 10/29/16 [History] predniSONE See Taper PO DAILY 10/29/16 [History] Follow up Appointment(s)/Referral(s): Mariajose Messer MD [STAFF PHYSICIAN] - 1-2 days Ernesto Miles MD [STAFF PHYSICIAN] - 1 Week Discharge Disposition: - Preliminary Cause of Preliminary Cause of : Non-STEMI
== END 2016-11-02 03:11 | disposition expired | DRG 190 ==
LOC: EC 20:14 → 6SEL 21:37
PROVIDERS: ADMIT Family Medicine; ATTEND Family Medicine
DX: J44.0 Chronic obstructive pulmonary disease with (acute) lower respiratory infection (principal); G93.40 Encephalopathy, unspecified; J96.22 Acute and chronic respiratory failure with hypercapnia; I21.4 Non-ST elevation (NSTEMI) myocardial infarction; J96.21 Acute and chronic respiratory failure with hypoxia; J15.6 Pneumonia due to other Gram-negative bacteria; E87.2 Acidosis; E44.1 Mild protein-calorie malnutrition; I42.9 Cardiomyopathy, unspecified; I47.1 Supraventricular tachycardia; I48.92 Unspecified atrial flutter; E87.1 Hypo-osmolality and hyponatremia; J44.1 Chronic obstructive pulmonary disease with (acute) exacerbation; I48.0 Paroxysmal atrial fibrillation; F03.90 Unspecified dementia, unspecified severity, without behavioral disturbance, psychotic disturbance, mood disturbance, and anxiety; I27.2 Other secondary pulmonary hypertension; I08.3 Combined rheumatic disorders of mitral, aortic and tricuspid valves; E87.8 Other disorders of electrolyte and fluid balance, not elsewhere classified; E87.5 Hyperkalemia; D50.9 Iron deficiency anemia, unspecified; E78.5 Hyperlipidemia, unspecified; R31.29 Other microscopic hematuria; R79.89 Other specified abnormal findings of blood chemistry; T38.0X5A Adverse effect of glucocorticoids and synthetic analogues, initial encounter; R73.9 Hyperglycemia, unspecified; I12.9 Hypertensive chronic kidney disease with stage 1 through stage 4 chronic kidney disease, or unspecified chronic kidney disease; N18.2 Chronic kidney disease, stage 2 (mild); H91.90 Unspecified hearing loss, unspecified ear; Z66 Do not resuscitate; Z79.82 Long term (current) use of aspirin; Z79.899 Other long term (current) drug therapy; Z87.891 Personal history of nicotine dependence; Z99.81 Dependence on supplemental oxygen; I46.9 Cardiac arrest, cause unspecified
CPT/HCPCS: 36415; 71010; 80053; 80061; 81001; 82550; 82553; 83036; 83540; 83550; 83735; 83930; 84100; 84439; 84443; 84484; 85025; 85027; 85049; 85610; 85730; 87086; 93005; 93306; 94640; 94760; 96365; 96375; 96376; 99291